=== PATIENT | female | born 1960 | race Caucasian/White ===

== ENCOUNTER 2016-05-18 15:21 | Outpatient (CLI) | payer OTHER | END 2016-05-18 15:22 | disposition home or self-care (01) | DX: Z12.31 Encounter for screening mammogram for malignant neoplasm of breast (principal) ==

== ENCOUNTER 2016-08-04 15:51 | Outpatient (CLI) | payer OTHER | END 2016-08-04 15:52 | disposition home or self-care (01) | DX: J47.9 Bronchiectasis, uncomplicated (principal); J43.9 Emphysema, unspecified; J84.10 Pulmonary fibrosis, unspecified; I77.6 Arteritis, unspecified; R06.02 Shortness of breath; R91.8 Other nonspecific abnormal finding of lung field ==

== ENCOUNTER 2017-02-13 16:27 | Outpatient (CLI) | payer OTHER ==
--- NOTE | 2017-02-14 09:18 | XRAY Report ---
TWO-VIEW CHEST: 02/13/2017 CLINICAL INDICATION: Upper respiratory infection, bronchiectasis. COMPARISON: CT 08/04/2016, plain film 02/25/2016. FINDINGS: Frontal and lateral views of the chest demonstrate a normal cardiac silhouette. The lungs now demonstrate patchy bilateral infiltrates, new from previous CT. No effusion or pneumothorax is present. IMPRESSION: PATCHY BILATERAL INFILTRATES. JOB #: [id number] EXT JOB #:[id number]
--- NOTE | 2017-02-14 09:19 | XRAY Report ---
THREE-VIEW PARANASAL SINUSES: 02/13/2017 CLINICAL INDICATION: Upper respiratory infection. FINDINGS: AP, Page, lateral views of the paranasal sinuses demonstrate no mucosal thickening or ai r-fluid level. Osseous structures appear unremarkable. IMPRESSION: NO EVIDENCE OF ACUTE SINUSITIS. JOB #: [id number] EXT JOB #:[id number]
== END 2017-02-13 16:28 | disposition home or self-care (01) ==
LOC: DI 16:27
PROVIDERS: ATTEND Physician Assistant Medical
DX: R91.8 Other nonspecific abnormal finding of lung field (principal); J06.9 Acute upper respiratory infection, unspecified; E03.9 Hypothyroidism, unspecified
CPT/HCPCS: 36415; 70220; 71020; 84439; 84443

== ENCOUNTER 2017-03-14 16:20 | Outpatient (CLI) | payer OTHER ==
--- NOTE | 2017-03-15 09:55 | XRAY Report ---
TWO VIEW CHEST: 03/14/2017 CLINICAL INDICATION: Followup pneumonia. COMPARISON: Plain film of 02/13/2017, chest CT of 08/04/2016, plain film of 02/25/2016. FINDINGS: Frontal and lateral views of the chest demonstrate a normal cardiac silhouette. Background bronchiectasis and emphysema are stable. The previously noted patchy infiltrates have resolved. No n ew consolidation, effusion, or pneumothorax. IMPRESSION: RESOLUTION OF PATCHY INFILTRATES. STABLE BACKGROUND BRONCHIECTASIS AND EMPHYSEMA. JOB #: [id number] EXT JOB #:[id number]
== END 2017-03-14 16:21 | disposition home or self-care (01) ==
LOC: DI 16:20
PROVIDERS: ATTEND Physician Assistant Medical
DX: J18.9 Pneumonia, unspecified organism (principal); J47.9 Bronchiectasis, uncomplicated; J43.9 Emphysema, unspecified
CPT/HCPCS: 71020

== ENCOUNTER 2017-06-22 07:55 | Outpatient (CLI) | payer BC ==
--- NOTE | 2017-06-23 15:56 | Mammography Report ---
DIGITAL SCREENING MAMMOGRAM: 06/22/2017 CLINICAL INDICATION: A 56-year-old nulliparous patient, for screening. COMPARISON: 05/2016, 04/2015, 03/2014, , 04/2011, 03/2010. TECHNIQUE: Routine CC and MLO projections were obtained of the breasts. Bilateral laterally exaggerated craniocaudal views. FINDINGS: The breasts again demonstrate heterogeneously dense fibroglandular parenchyma bilaterally. Punctate, typically benign calcifications are present. No suspicious masses, clustered microcalcifications, or regions of architectural distortion are identified. IMPRESSION: BENIGN FINDINGS. RECOMMENDATION: ROUTINE ANNUAL SCREENING UNLESS OTHERWISE CLINICALLY INDICATED. BIRADS CATEGORY 2-BENIGN FINDINGS. STANDARD QUALIFYING STATEMENTS: 1. This examination was reviewed with the aid of Computer-Aided Detection (CAD). 2. A negative or benign imaging report should not delay biopsy if clinically suspicious findings are present. Consider surgical consultation if warranted. More than 5% of cancers are not identified by imaging. 3. Dense breasts may obscure an underlying neoplasm. TD: 06/23/2017 15:54
== END 2017-06-22 07:56 | disposition home or self-care (01) ==
LOC: DI 07:55
PROVIDERS: ATTEND Physician Assistant Medical
DX: Z12.31 Encounter for screening mammogram for malignant neoplasm of breast (principal)
CPT/HCPCS: 77067

== ENCOUNTER 2017-06-22 07:56 | Outpatient (CLI) | payer BC ==
--- NOTE | 2017-06-22 14:29 | DEXA Report ---
DEXA SCAN: 06/22/2017 CLINICAL INDICATION: Postmenopausal. TECHNIQUE: Dual energy x-ray absorptiometry (DXA) was performed on a [email or web address] system. Regions measured are the AP spine, femoral neck, and, if needed, forearm. COMPARISON: None. In accordance with the International Society for Clinical Densitometry (ISCD) guidelines, data from previous exams may be reanalyzed using current recommendations and techniques. This is done to allow a more accurate basis for comparison with the current study. FINDINGS The data for the lumbar spine is as follows: REGION BMD (g/cm/cm) T-SCORE Z-SCORE L1 0.736 -3.3 -1.9 L2 0.809 -3.3 -1.8 L3 0.840 -3.0 -1.6 L4 0.824 -3.1 -1.7 TOTAL 0.807 -3.1 -1.7 NOTE: All evaluable vertebrae are used for classification. The data for the hip is as follows: REGION BMD (g/cm/cm) T-SCORE Z-SCORE Neck 0.754 -2.0 -0.6 TOTAL 0.705 -2.4 -1.3 NOTE: The femoral neck or total proximal femur, whichever is lowest, is used for classification. IMPRESSION THE WHO CLASSIFICATION BASED ON THE INTERNATIONAL REFERENCE STANDARD IS OSTEOPOROSIS. THE FRACTURE RISK IS HIGH. RECOMMENDATION: Patients with diagnosis of osteoporosis or osteopenia should have regular bone mineral density assessment. For those eligible for Medicare, routine testing is allowed once every 2 years. Testing frequency can be increased for patients who have rapidly progressing disease or for those who are receiving medical therapy to restore bone mass. COMMENT: World Health Organization (WHO) definitions for osteoporosis and osteopenia: NORMAL BMD: T-score at 1.0 or higher, fracture risk is low. OSTEOPENIA BMD: T-score between 1.0 and -2.5, fracture risk is increased. OSTEOPOROSIS BMD: T-score at 2.5 or lower, fracture risk high. National Osteoporosis Foundation recommends: 1. Obtain adequate dietary calcium (at least 1200 mg per day) and vitamin D (400 -800 international units per day). 2. Participate, as appropriate, in regular weightbearing and muscle- strengthening exercise. 3. Avoid tobacco use and reduce alcohol and caffeine intake. 4. For more detailed information see the website at www.NOF.org. TD: 06/22/2017 13:24 ADDISON
== END 2017-06-22 07:57 | disposition home or self-care (01) ==
LOC: DI 07:56
PROVIDERS: ATTEND Physician Assistant Medical
DX: M81.0 Age-related osteoporosis without current pathological fracture (principal)
CPT/HCPCS: 77080

== ENCOUNTER 2017-06-30 08:07 | Outpatient (CLI) | payer BC ==
[2017-06-30 08:39] LABS: BASOPHILS # (AUTO) 0.1 10^3/uL (0.0-0.1); BASOPHILS % (AUTO) 0.9 %; EOSINOPHILS # (AUTO) 0.4 10^3/uL (0.0-0.7); EOSINOPHILS % (AUTO) 3.5 %; HGB - HEMOGLOBIN 14.1 g/dL (12.0-16.0); LYMPHOCYTES # (AUTO) 1.5 10^3/uL (1.5-3.5); LYMPHOCYTES % (AUTO) 12.7 %; MEAN CORPUSCULAR HEMOGLOBIN 30.4 pg (27.0-31.0); MEAN CORPUSCULAR HGB CONC 33.6 g/dL (32.0-36.0); MEAN CORPUSCULAR VOLUME 90.5 fL (81.0-99.0); MEAN PLATELET VOLUME 7.2 fL (7.9-10.8); MONOCYTES # (AUTO) 0.9 10^3/uL (0.0-1.0); MONOCYTES % (AUTO) 7.6 %; NEUTROPHILS # (AUTO) 8.7 10^3/uL (1.5-6.6); NEUTROPHILS % (AUTO) 75.3 %; PLT - PLATELET COUNT 345 10^3/uL (130-450); RED BLOOD COUNT 4.64 10^6/uL (4.20-5.40); RED CELL DISTRIBUTION WIDTH 13.5 % (12.0-15.0); WHITE BLOOD COUNT 11.5 x10^3/uL (4.8-10.8)
[2017-06-30 08:49] LABS: ALBUMIN 4.4 g/dL (3.2-5.5); ALBUMIN/GLOBULIN RATIO 1.4 (1.0-2.2); ALKALINE PHOSPHATASE 69 IU/L (42-121); ALT ALANINE AMINOTRANSFERASE 16 IU/L (10-60); AST ASPARTATE AMINOTRANSFERASE 18 IU/L (10-42); BILIRUBIN,TOTAL 0.5 mg/dL (0.2-1.0); BUN - BLOOD UREA NITROGEN 15 mg/dL (6-20); CALCIUM 9.3 mg/dL (8.5-10.3); CARBON DIOXIDE - CO2 29 mmol/L (21-32); CHLORIDE 101 mmol/L (101-111); CHOL/HDL RATIO 2.8 (<4.4); CHOLESTEROL 187 mg/dL; CREATININE 0.7 mg/dL (0.4-1.0); GFR - MDRD 86 (>89); GLUCOSE 102 mg/dL (70-100); HDL CHOLESTEROL 67 mg/dL; LDL CHOLESTEROL,CALCULATED 109 mg/dL; LDL/HDL RATIO 1.6 (<4.4); SODIUM 139 mmol/L (135-145); TOTAL PROTEIN 7.6 g/dL (6.7-8.2); VLDL CHOLESTEROL 11 mg/dL
[2017-06-30 09:50] LABS: THYROID STIMULATING HORMONE 0.09 uIU/mL (0.34-5.60)
[2017-06-30 10:35] LABS: FREE T4 (FREE THYROXINE) 1.11 ng/dL (0.58-1.64)
== END 2017-06-30 08:08 | disposition home or self-care (01) ==
LOC: LAB 08:07
PROVIDERS: ATTEND Physician Assistant Medical
DX: Z00.00 Encounter for general adult medical examination without abnormal findings (principal)
CPT/HCPCS: 36415; 80053; 80061; 83721; 84439; 84443; 85025

== ENCOUNTER 2017-12-15 07:37 | Outpatient (CLI) | payer BC ==
[2017-12-15 08:39] LABS: THYROID STIMULATING HORMONE 15.62 uIU/mL (0.34-5.60)
[2017-12-15 08:41] LABS: FREE T4 (FREE THYROXINE) 0.49 ng/dL (0.58-1.64)
== END 2017-12-15 07:38 | disposition home or self-care (01) ==
LOC: LAB 07:37
PROVIDERS: ATTEND Internal Medicine Endocrinology, Diabetes & Metabolism
DX: M81.0 Age-related osteoporosis without current pathological fracture (principal); E03.9 Hypothyroidism, unspecified
CPT/HCPCS: 36415; 81599; 82306; 83970; 84075; 84439; 84443

== ENCOUNTER 2018-01-24 18:16 | Outpatient (CLI) | payer BC ==
--- NOTE | 2018-01-25 09:52 | Ultrasound Report ---
Reason: DYSPHAGIA Procedure Date: 01/24/2018 Accession Number: [id number] / [id number] Procedure: US - Head or Neck Soft Tissue CPT Code: FULL RESULT: EXAM: THYROID ULTRASOUND EXAM DATE: 01/24/2018 06:43 PM. CLINICAL HISTORY: DYSPHAGIA. COMPARISON: None. TECHNIQUE: Real time sonographic imaging of the thyroid was performed by the head of music. Multiple brand representative static images were saved for review. FINDINGS: THYROID GLAND: Right Lobe: 2.7 x 0.9 x 0.4 cm. Mild diffuse heterogenicity without definite discrete nodule. Right Lobe Nodules: None. Left Lobe: 2.4 x 0.8 x 0.7 cm. Mild diffuse heterogenicity without definite discrete nodule. Left Lobe Nodules: None. Isthmus: 0.2 cm AP. Isthmic Nodules: None. LYMPH NODES: No adenopathy demonstrated. OTHER: None. IMPRESSION: Small, heterogeneous thyroid without definite discrete nodule. RADIA
== END 2018-01-24 18:17 | disposition home or self-care (01) ==
LOC: DI 18:16
PROVIDERS: ATTEND Physician Assistant Medical
DX: R13.10 Dysphagia, unspecified (principal)
CPT/HCPCS: 76536

== ENCOUNTER 2018-05-14 17:59 | Inpatient (IN) | payer BC ==
[2018-05-14 18:39] LABS: BASOPHILS % (AUTO) 0.3 %; EOSINOPHILS # (AUTO) 0.1 10^3/uL (0.0-0.7); EOSINOPHILS % (AUTO) 0.6 %; HGB - HEMOGLOBIN 13.4 g/dL (12.0-16.0); LYMPHOCYTES % (AUTO) 7.1 %; MEAN CORPUSCULAR HEMOGLOBIN 30.4 pg (27.0-31.0); MEAN CORPUSCULAR HGB CONC 32.5 g/dL (32.0-36.0); MEAN CORPUSCULAR VOLUME 93.4 fL (81.0-99.0); MEAN PLATELET VOLUME 6.6 fL (7.9-10.8); MONOCYTES # (AUTO) 1.1 10^3/uL (0.0-1.0); NEUTROPHILS # (AUTO) 12.1 10^3/uL (1.5-6.6); PLT - PLATELET COUNT 301 10^3/uL (130-450); RED BLOOD COUNT 4.41 10^6/uL (4.20-5.40); RED CELL DISTRIBUTION WIDTH 14.7 % (12.0-15.0); WHITE BLOOD COUNT 14.3 x10^3/uL (4.8-10.8)
--- NOTE | 2018-05-14 18:43 | XRAY Report ---
Reason: cough, sob Procedure Date: 05/14/2018 Accession Number: [id number] / [id number] Procedure: XR - Chest 1 View X-Ray CPT Code: 47193 FULL RESULT: EXAM: CHEST RADIOGRAPHY EXAM DATE: 05/14/2018 06:29 PM. CLINICAL HISTORY: Cough, sob. COMPARISON: CHEST 2 VIEW PA/LAT 01/02/2018 2:27 PM. TECHNIQUE: 1 view. FINDINGS: Lungs/Pleura: There are no patchy and nodular airspace densities in the right mid and lower lung. Left lung appears unchanged. There is no pneumothorax. Mediastinum: Heart size is normal. Trachea is midline. Other: None. IMPRESSION: Suspicious for a patchy right mid and lower lung zone bronchopneumonia RADIA
[2018-05-14 18:53] LABS: ALBUMIN 4.3 g/dL (3.2-5.5); ALBUMIN/GLOBULIN RATIO 1.4 (1.0-2.2); BILIRUBIN,TOTAL 0.5 mg/dL (0.2-1.0); CALCIUM 9.1 mg/dL (8.5-10.3); CREATININE 0.7 mg/dL (0.4-1.0); TOTAL PROTEIN 7.4 g/dL (6.7-8.2)
[2018-05-14] MEDS ORDERED: AZITHROMYCIN INJ 500 MG in SODIUM CHLORIDE 0.9% 250 ML IV STA (18:54)
[2018-05-14] MEDS ORDERED: MORPHINE 2 MG/ML CARPUJECT IVP STA ×2 (18:54→20:08)
[2018-05-14] MEDS ORDERED: cefTRIAXone 2 GM in SODIUM CHLORIDE 0.9% MINIBAG 100 ML IV STA (18:54)
--- NOTE | 2018-05-14 18:56 | ED Physician Documentation ---
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 No fevers but she has been cold and sweaty. She feels terrible.) Review of Systems Ten Systems: 10 systems reviewed and negative Constitutional: reports: Chills. 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 - Present Medications Home Medications: Ambulatory Orders Medication Instructions Recorded Confirmed Calcium Carbonate/Vitamin D3 1 each PO DAILY 03/25/14 01/26/16 [Calcium + Vitamin D Tablet] Albuterol [Ventolin Hfa] 2 puffs INH Q4H PRN 10/14/14 01/26/16 Levothyroxine [Synthroid] 137 mcg PO QDAC 04/07/15 01/26/16 [place]-3 Fatty Acids [Fish Oil] 1 cap PO DAILY 05/19/15 01/26/16 Ibuprofen 05/14/18 Methotrexate 05/14/18 Montelukast Sodium [Singulair] 05/14/18 Turmeric Root Extract [Turmeric 05/14/18 Curcumin] - Allergies Allergies/Adverse Reactions: Allergies Allergy/AdvReac Type Severity Reaction Status Date / Time Penicillins Allergy Hives Verified 05/14/18 18:09 - Social History Does the pt smoke?: No Smoking Status: Never smoker Does the pt drink ETOH?: Yes Does the pt have substance abuse?: No - Family History Family history: reports: Non contributory - Immunizations Immunizations are current?: Yes PD ED PE NORMAL - Vitals Vital signs reviewed: Yes - General General: Alert and oriented X 3, Other (She appears to be in distress due to pain) - HEENT HEENT: PERRL, EOMI - Neck Neck: Supple, no meningeal sign, No bony TTP - Cardiac Cardiac: RRR, No murmur - Respiratory Respiratory: Other (Diminished on the right and wheezy on the left) - Abdomen Abdomen: Soft, Non tender - Back Back: No CVA TTP, No spinal TTP - Derm Derm: Normal color, Warm and dry - Extremities Extremities: No edema, No calf tenderness / cord - Neuro Neuro: Alert and oriented X 3, Normal speech Results - Vitals Vitals: Vital Signs - 24 hr 05/14/18 05/14/18 18:03 20:15 Temperature 37.1 C Heart Rate 115 H 110 H Respiratory 18 22 Rate Blood Pressure 129/75 123/73 O2 Saturation 91 L 97 Oxygen O2 Source Room air - EKG (time done) 1805 Rate: Rate (enter#) (104) Rhythm: Sinus tachycardia [place]: Normal Intervals: Normal MO, Prolonged QT QRS: Normal Ischemia: Non specific changes Computer interpretation: Agree with computer - Labs Labs: Laboratory Tests 05/14/18 05/14/18 05/14/18 18:33 18:33 18:33 WBC 14.3 H RBC 4.41 Hgb 13.4 Hct 41.2 MCV 93.4 MCH 30.4 MCHC 32.5 RDW 14.7 Plt Count 301 MPV 6.6 L Neut # (Auto) 12.1 H Lymph # (Auto) 1.0 L Rabun # (Auto) 1.1 H Eos # (Auto) 0.1 Baso # (Auto) 0.0 Absolute Nucleated RBC 0.00 Nucleated RBC % 0.0 Sodium 136 Potassium 3.4 L Chloride 96 L Carbon Dioxide 30 Anion Gap 10.0 BUN 12 Creatinine 0.7 Estimated GFR (MDRD) 86 L Glucose 122 H Lactic Acid Calcium 9.1 Total Bilirubin 0.5 AST 20 ALT 17 Alkaline Phosphatase 73 Troponin I < 0.04 Total Protein 7.4 Albumin 4.3 Globulin 3.1 Albumin/Globulin Ratio 1.4 Lipase 26 Influenza A (Rapid) Influenza B (Rapid) 05/14/18 05/14/18 19:27 20:18 WBC RBC Hgb Hct MCV MCH MCHC RDW Plt Count MPV Neut # (Auto) Lymph # (Auto) Rabun # (Auto) Eos # (Auto) Baso # (Auto) Absolute Nucleated RBC Nucleated RBC % Sodium Potassium Chloride Carbon Dioxide Anion Gap BUN Creatinine Estimated GFR (MDRD) Glucose Lactic Acid 0.9 Calcium Total Bilirubin AST ALT Alkaline Phosphatase Troponin I Total Protein Albumin Globulin Albumin/Globulin Ratio Lipase Influenza A (Rapid) Negative Influenza B (Rapid) Negative - Rads (name of study) 1v Chest Radiology: EMP read contemporaneously (RML/RLL small PNA) CTA Chest Radiology: EMP read contemporaneously (no PE< Acute on chronic lung dz, with PNA and adenopathy.) PD MEDICAL DECISION MAKING - ED course ED course: 57yo woman with URI and now severe CP and productive cough, tight lungs. CXR with PNA and given severity of sx also CT which was neg except for infection. BCX x 2 obtained, and given rocephin/zithromax. Given the underlying pulmonary vasculitis I spoke with Dr. Vigil on-call for [facility] pulmonology who reviewed her chart and does not feel like steroids need to be bolused and it can be treated sort of like cfi-oh-ovf-mill pneumonia. She was hypoxic in the department down to 85% on room air and I spoke with the hospitalist, Dr. Whiteside for admission at 9 PM. Departure - Departure Disposition: 66 [facility] DC/Xfer Clinical Impression: Hypoxemia Pneumonia Qualifiers: Pneumonia type: due to unspecified organism Laterality: right Lung location: unspecified part of lung Qualified Code(s): J18.9 - Pneumonia, unspecified organism Condition: Stable
[2018-05-14] MEDS ORDERED: IOVERSOL 320 100 ML VIAL IVP ONE (19:46)
--- NOTE | 2018-05-14 20:31 | CT Report ---
Reason: chest pain Procedure Date: 05/14/2018 Accession Number: [id number] / [id number] Procedure: CT - Chest Angio (PE) CPT Code: FULL RESULT: EXAM: CT ANGIOGRAM CHEST EXAM DATE: 05/14/2018 07:58 PM. CLINICAL HISTORY: Chest pain. COMPARISON: CHEST W/O 08/04/2016 4:26 PM CHEST ANGIO 03/26/2015 12:15 PM. TECHNIQUE: Routine helical imaging was performed through the chest in the pulmonary arterial phase. IV Contrast: OPTI 320 80mL. Reconstructions: Coronal 3-D MIP reconstructions.Sagittal and coronal. In accordance with CT protocol optimization, one or more of the following dose reduction techniques were utilized for this exam: automated exposure control, adjustment of mA and/or KV based on patient size, or use of iterative reconstructive technique. FINDINGS: Pulmonary Arteries: Diagnostic quality: Adequate through the segmental arteries. No evidence for acute or chronic pulmonary emboli. RV/LV is within normal limits. There is no interventricular septal bowing. There is no reflux of contrast material in the IVC. Lungs/Pleura: Overexpanded, emphysematous changes. Interval development of diffuse peripheral interstitial infiltrates, tree-in-bud appearance, mild bronchial wall thickening, and several subsegmental areas of focal consolidation. Dominant focal areas of consolidation: posterior segment right upper lobe axial image 57 series 5 measuring 3.5 x 2.0 cm, 3.8 x 2.5 cm lateral segment right middle lobe axial image 86 series 5. Several 1.5 cm and smaller more focal opacities basilar segments right lower lobe. Calcified granulomata right lower lobe. No discrete noncalcified mass, effusion or pneumothorax. Mediastinum: Heart is of normal caliber without significant pericardial fluid. Interval increase in extensive confluent adenopathy right hilum, subcarinal region, pretracheal region and to a much lesser extent involving the aortopulmonary window and left hilum. No endobronchial lesions. Thoracic Aorta: Unremarkable. Upper Abdomen: Unremarkable. Other: None. IMPRESSION: 1. No evidence of pulmonary emboli. 2. Acute on chronic lung disease consisting of airway disease and extensive small peripheral lung infiltrates, several dominant areas in the right lung. Follow-up chest CT in 3 months recommended to confirm resolution following treatment. 3. Increasing mediastinal and hilar adenopathy. RADIA
[2018-05-14] MEDS ORDERED: IPRATROPIUM/ALBUTEROL 3 ML NEB INH STA (21:05)
[2018-05-14] MEDS ORDERED: PROCHLORPERAZINE 10 MG/2 ML VIAL IVP PRN (21:24)
[2018-05-14] MEDS ORDERED: ZOLPIDEM 5 MG TABLET PO PRN (21:24)
[2018-05-14] MEDS ORDERED: ONDANSETRON 4 MG/2 ML VIAL IVP PRN (21:24)
[2018-05-14] MEDS ORDERED: KETOROLAC 30 MG/ML VIAL IVP STA (21:34)
[2018-05-14] MEDS ORDERED: LIDOCAINE PATCH 5% TOP STA (21:35)
[2018-05-14] MEDS ORDERED: LORazepam 2 MG/ML VIAL IVP PRN (21:40)
[2018-05-14 21:56] LABS: CALCIUM 8.3 mg/dL (8.5-10.3); CREATININE 0.7 mg/dL (0.4-1.0)
--- NOTE | 2018-05-14 22:04 | HISTORY & PHYSICAL EXAMINATION ---
Chief Complaint - Chief Complaint Chief Complaint: Chest pain History of Present Illness - Admitted From Admitted From:: Emergency Department - History Obtained From Records Reviewed: ED History obtained from: Patient, and ED Physician Exam Limitations: None - History of Present Illness HPI Comment/Other: Patient is a 57-year-old female with a history of pulmonary vasculitis on methotrexate as well as hypothyroidism who presents today with a relatively sudden onset of chest pain at rest at approximately 4 PM this afternoon. Patient states she was riding in her car doing nothing unusual or exertional when she started to have pain in a fairly localized area to the right inferior aspect of the chest wall. She states it does not radiate nor does it seem to change with position or exacerbation or rest. She describes it as sharp and like a knife stabbing her in the to the chest. She went to the emergency room for evaluation where the initial acute coronary syndrome workup was initiated showing no acute findings on the EKG and a normal troponin initially. She also has an exacerbation of her chronic shortness of breath which has been present since her diagnosis of pulmonary vasculitis several years ago. She states that she did take a DuoNeb breathing treatment at home prior to going to the emergency room that was not helpful however she admits that she was quite panicky and is not sure if it was quite administered properly. In the emergency room she has not had a very high oxygen requirement waxing and waning between room air and 2-3 L of nasal cannula. Chest x-ray showed a possible consolidation, CT angiogram was also done that was only remarkable for possible consolidation. There is no pulmonary embolus, dissecting abdominal aneurysm or other acute findings. Dr. Bailon, the emergency physician who saw her in the ED did contact pulmonology at [facility] where she is receiving her care in the recommendation by them was to treat this as a typical community-acquired pneumonia without the need for steroids or other specialized treatment given the vasculitis diagnosis. Patient had a blood culture x2, followed by azithromycin and Rocephin and IV morphine for pain. Despite 2 doses of 4 mg of IV morphine however, the patient states that it only took the pain from a 10 to an 8 and she is still quite uncomfortable at the time of exam. She states that Dilaudid is not really an option for her because she has significant side effects. I was asked to admit the patient under observation for pain control of the chest pain and for the community-acquired pneumonia. History - Past Medical History Cardiovascular: reports: None Respiratory: reports: Shortness of breath, Other (Pulmonary vasculitis) Neuro: reports: None Endocrine/Autoimmune: reports: HyPOthyroidism GI: reports: None INTENSIVE CARE UNIT NURSE: reports: Other (Cervical cancer status post total hysterectomy and chemotherapy) : reports: None HEENT: reports: None Psych: reports: None Musculoskeletal: reports: Osteoporosis Derm: reports: None MRSA Hx?: No - Past Surgical History /INTENSIVE CARE UNIT NURSE: reports: Hysterectomy - Family & Social History Family History Comment/Other: Patient denies any family history Living arrangement: At home Living Situation: With spouse/s.o. Social History Notes: Patient works as an elementary school counselor - Substance History Use: Uses substance without health or social issues: NONE Abuse: Recurrent use of substance despite neg consequences: NONE Dependence: Experiences withdrawal or developed tolerances: NONE - POLST Patient has POLST: No POLST Status: Full Code Meds/Allgy - Home Medications Home Medications: Ambulatory Orders Medication Instructions Recorded Confirmed Calcium Carbonate/Vitamin D3 1 each PO DAILY 03/25/14 01/26/16 [Calcium + Vitamin D Tablet] Albuterol [Ventolin Hfa] 2 puffs INH Q4H PRN 10/14/14 01/26/16 Levothyroxine [Synthroid] 137 mcg PO QDAC 04/07/15 01/26/16 [place]-3 Fatty Acids [Fish Oil] 1 cap PO DAILY 05/19/15 01/26/16 Montelukast Sodium [Singulair] 05/14/18 RX: Ibuprofen 05/14/18 RX: Methotrexate 05/14/18 Turmeric Root Extract [Turmeric 05/14/18 Curcumin] - Allergies Allergies/Adverse Reactions: Allergies Allergy/AdvReac Type Severity Reaction Status Date / Time Penicillins Allergy Hives Verified 05/14/18 18:09 Review of Systems - Cardiovascular Cariovascular: reports: Chest pain. denies: Lightheadedness, Syncope, Exertional dyspnea - Respiratory Respiratory: reports: Wheezing, SOB at rest, SOB with exertion. denies: Cough - Gastrointestinal Gastrointestinal: denies: Abdominal pain - Genitourinary Genitourinary: denies: Dysuria - All Other Systems All Other Systems: reports: Reviewed and negative Prior Level of Functionality: Independent Exam - Vital Signs Reviewed Vital Signs: Yes Vital Signs: Vital Signs x48h Temp Pulse Resp BP Pulse Ox 05/14/18 21:58 107 H 24 121/83 H 98 05/14/18 21:35 105 H 31 H 05/14/18 20:15 110 H 22 123/73 97 05/14/18 18:03 37.1 C 115 H 18 129/75 91 L Vital Signs - 24 hr 05/14/18 05/14/18 05/14/18 18:03 20:15 21:35 Temperature 37.1 C Heart Rate 115 H 110 H 105 H Respiratory 18 22 31 H Rate Blood Pressure 129/75 123/73 O2 Saturation 91 L 97 05/14/18 05/14/18 21:52 21:58 Temperature Heart Rate 104 H 107 H Respiratory 27 H 24 Rate Blood Pressure 121/83 H O2 Saturation 98 98 Oxygen O2 Source Nasal cannula - Physical Exam General Appearance: positive: Mild distress (Mild distress due to pain) Eyes Bilateral: positive: Normal inspection ENT: positive: ENT inspection nml Neck: positive: Nml inspection Respiratory: positive: Chest non-tender, Wheezes (Bilateral basilar wheezes) Cardiovascular: positive: Regular rate & rhythm, No murmur, No gallop Abdomen: positive: Non-tender, No organomegaly, Nml bowel sounds Skin: positive: Color nml Extremities: positive: Non-tender, Full ROM, No pedal edema Neurologic/Psychiatric: positive: Oriented x3, CN's nml (2-12), Motor nml, Sensation nml, Mood/affect nml Sepsis Event Note (H) - Evaluation Current Stage of Sepsis: Ruled out Conclusion/Plan - Problem List (1) Chest pain Conclusion/Plan: Chest pain does not appear to be cardiac in nature. This is for several r easons, first because the location of the pain and its very focalized area, as well as the constant description of pain that does not change with exertion, as well as negative troponins and an unremarkable EKG. This is consistent with a pleurisy, possibly secondary to a pneumonitis given her history of a inflammatory vasculitis of the lungs previously diagnosed. Certainly an acute infection such as community-acquired pneumonia would exacerbate this leading to a focal pleurisy pain. Unfortunately she has not responded to significant doses of morphine so I will try her on Toradol and a lidocaine patch. Given the persistence of the chest pain and only one troponin having been drawn I will go ahead and rule out acute coronary syndrome with to further serial troponin draws but I anticipate them to also be negative. Qualifiers: Chest pain type: pleurodynia Qualified Code(s): R07.81 - Pleurodynia (2) Community acquired pneumonia Conclusion/Plan: Community-acquired pneumonia with a minimal oxygen requirement which is probably more of a function of her pain than the actual infection. I would surmise that once we get her pain under control her breathing will improve and she will likely not require oxygen and can probably be discharged on oral antibiotics within 1-2 days. However I would still like to rule out acute coronary syndrome, and I agree with admission given her risk factors with pulmonary vasculitis. We will continue the IV antibiotics and follow-up in the morning possible transition to orals within 1-2 days. (3) Pulmonary vasculitis Conclusion/Plan: Nothing acute related to this diagnosis with the exception of possible pain b eing more exacerbated secondary to the inflammatory vasculitis. Per [facility], recommendation is to treat this as a typical community-acquired pneumonia as if she does not have this diagnosis. We will resume her home methotrexate. - Lab Results Lab results reviewed: Yes Dustin Bones: 05/14/18 18:33 05/14/18 21:42 - Diagnostic Imaging Results Diagnostic Imaging Results: positive: Final report reviewed, Read independently - EKG Results EKG Interpreted Independently: Yes EKG Comparison: Old EKG unavailable Core Measures - Anticipated LOS I expect patient to be DC'd or transferred within 96 hours.: Yes - DVT/VTE - Prophylaxis VTE/DVT Device ordered at admit?: Yes
[2018-05-15] MEDS: SODIUM CHLORIDE FLUSH 0.9% 10 ML SYRINGE IVP SCH ×5 (00:28→23:46)
[2018-05-15] MEDS ORDERED: IOVERSOL 320 100 ML VIAL IVP ONE ×2 (01:22)
[2018-05-15 03:47] LABS: BASOPHILS % (AUTO) 0.3 %; EOSINOPHILS % (AUTO) 0.4 %; HGB - HEMOGLOBIN 12.4 g/dL (12.0-16.0); LYMPHOCYTES # (AUTO) 1.1 10^3/uL (1.5-3.5); LYMPHOCYTES % (AUTO) 9.5 %; MEAN CORPUSCULAR HEMOGLOBIN 30.5 pg (27.0-31.0); MEAN CORPUSCULAR HGB CONC 33.1 g/dL (32.0-36.0); MEAN CORPUSCULAR VOLUME 92.2 fL (81.0-99.0); MEAN PLATELET VOLUME 6.9 fL (7.9-10.8); MONOCYTES % (AUTO) 8.5 %; NEUTROPHILS # (AUTO) 9.2 10^3/uL (1.5-6.6); NEUTROPHILS % (AUTO) 81.3 %; PLT - PLATELET COUNT 238 10^3/uL (130-450); RED BLOOD COUNT 4.06 10^6/uL (4.20-5.40); RED CELL DISTRIBUTION WIDTH 14.9 % (12.0-15.0); WHITE BLOOD COUNT 11.4 x10^3/uL (4.8-10.8)
[2018-05-15 03:53] LABS: CALCIUM 8.4 mg/dL (8.5-10.3); CREATININE 0.6 mg/dL (0.4-1.0)
[2018-05-15] MEDS ORDERED: LEVOTHYROXINE 112 MCG TABLET PO SCH (07:00)
[2018-05-15] MEDS ORDERED: LEVOTHYROXINE 25 MCG TABLET PO SCH (07:00)
[2018-05-15] MEDS: oxyCODONE 5 MG TABLET PO PRN ×2 (07:34→22:16)
[2018-05-15] MEDS: LEVOTHYROXINE 112 MCG TABLET PO SCH (07:35)
[2018-05-15] MEDS: PANTOPRAZOLE 40 MG TABLET PO SCH (07:35)
[2018-05-15] MEDS: IPRATROPIUM/ALBUTEROL 3 ML NEB INH PRN ×4 (07:36→19:50)
[2018-05-15] MEDS: DOXYCYCLINE INJ 100 MG in SODIUM CHLORIDE 0.9% MINIBAG 100 ML IV SCH ×2 (08:44→20:42)
[2018-05-15] MEDS: SODIUM CHLORIDE FLUSH 0.9% 10 ML SYRINGE IVP PRN ×3 (08:50→11:11)
[2018-05-15] MEDS: CALCIUM CARB (OYSTER SHELL) 500 MG TABLET PO SCH (08:54)
[2018-05-15] MEDS: POLYETHYLENE GLYCOL 3350 17 GM PACKET PO SCH (08:54)
[2018-05-15] MEDS: CHOLECALCIFEROL 400 UNIT TABLET PO SCH (08:54)
[2018-05-15] MEDS: LACTOB/S.THERMOPHL/BIFIDO CAPSULE PO SCH ×2 (08:55→16:25)
[2018-05-15] MEDS: AZITHROMYCIN INJ 500 MG in SODIUM CHLORIDE 0.9% 250 ML IV SCH (10:02)
[2018-05-15] MEDS: ACETAMINOPHEN 325 MG TABLET PO PRN ×2 (11:21→19:17)
[2018-05-15] MEDS ORDERED: LIDOCAINE PATCH 5% TOP PRN (12:20)
[2018-05-15] MEDS ORDERED: KETOROLAC 30 MG/ML VIAL IVP PRN (12:20)
--- NOTE | 2018-05-15 12:21 | PROVIDER PROGRESS NOTE ---
Subjective - Prog Note Date Prog Note Date: 05/15/18 Prog Note Time: 12:21 - Subjective Pt reports feeling: Improved Subjective: Miesha complains of not being able to sleep on her first night of stay due to "loud banging in the hallways". She denies any new symptoms including chest pain, nausea, vomiting, rashes, headaches, blurred vision, headaches, or an increased cough. She states that she can probably get up a sputum sample today. Current Medications - Current Medications Current Medications: Active Medications: Acetaminophen (Tylenol) 650 mg PO Q4HR PRN Albuterol/Ipratropium (Duoneb) 3 ml INH RTQ4H PRN Calcium Carbonate/Glycine ([place]-500) 500 mg PO DAILY ROMY Cholecalciferol (Vitamin D3) 400 unit PO DAILY ROMY Azithromycin 500 mg/ Sodium (Chloride) 250 mls @ 250 mls/hr IV DAILY ROMY Doxycycline Hyclate 100 mg/ (Sodium Chloride) 100 mls @ 100 mls/hr IV BID ROMY Ketorolac Tromethamine (Toradol Inj (30mg)) 30 mg IVP Q6HR PRN Lactobacil/Bifidobact/Streptococcus (Vsl#3) 1 cap PO BIDWM ROMY Levothyroxine Sodium (Synthroid) 112 mcg PO QDAC ROMY Lidocaine (Lidoderm Patch) 1 patch TOP DAILY PRN Lorazepam (Ativan Inj (Vial)) 1 mg IVP Q2HR PRN Ondansetron HCl (Zofran Inj) 4 mg IVP Q6HR PRN Oxycodone HCl (Roxicodone) 5 mg PO Q4HR PRN Pantoprazole Sodium (Protonix) 40 mg PO QDAC ROMY Polyethylene Glycol (Miralax) 17 gm PO DAILY [facility] Prochlorperazine Edisylate (Compazine Inj) 10 mg IVP Q6HR PRN Zolpidem Tartrate (Ambien) 5 mg PO QPM PRN HOME meds: Calcium Carbonate/Vitamin D3 [Calcium + Vitamin D Tablet] 1 each PO DAILY 03/25/14 Albuterol [Ventolin Hfa] 2 puffs INH Q4H PRN 10/14/14 Levothyroxine [Synthroid] 112 mcg PO QDAC 04/07/15 [place]-3 Fatty Acids [Fish Oil] 1 cap PO DAILY 05/19/15 Ibuprofen 400 mg PO Q6H PRN 05/14/18 Methotrexate 15 mg PO MO 05/14/18 Turmeric Root Extract [Turmeric Curcumin] 500 mg PO DAILY 05/14/18 Ipratropium/Albuterol [Duoneb] 3 ml INH BID 05/15/18 Montelukast [Singulair] 10 mg PO QPM 05/15/18 Objective - Vital Signs/Intake & Output Reviewed Vital Signs: Yes Vital Signs: Vital Signs x48h Temp Pulse Pulse Resp BP Pulse Ox 05/15/18 11:35 78 16 05/15/18 08:25 37.3 C 83 18 123/66 96 05/15/18 07:37 85 18 05/15/18 04:29 36.4 C L 90 20 111/57 L 99 Intake & Output: Intake & Output 05/12/18 05/13/18 05/14/18 05/15/18 23:59 23:59 23:59 23:59 Intake Total 350 1330 Balance 350 1330 - Objective General Appearance: positive: Alert, Mild distress, Moderate distress, Anxious Eyes Bilateral: positive: PERRL ENT: positive: Pharynx nml, Dry mucous membranes Neck: positive: Thyroid nml, No JVD, Trachea midline Respiratory: positive: Chest non-tender, No respiratory distress, Rhonchi Cardiovascular: positive: Regular rate & rhythm, No murmur, No gallop Peripheral Pulses: 1+ Radial (R), 1+ Radial (L) Abdomen: positive: Non-tender, Nml bowel sounds Back: positive: Nml inspection Skin: positive: Color nml, No rash, Warm, Dry Extremities: positive: Non-tender, Full ROM, Nml appearance, No pedal edema Neurologic/Psychiatric: positive: Oriented x3, CN's nml (2-12), Motor nml, S ensation nml, Mood/affect nml, Weakness, Depressed mood/affect Reflexes: Bicep (R): 3+, Bicep (L): 3+ - Lab Results Fish Bones: 05/15/18 03:40 05/15/18 03:40 Other Labs: Lab Results x24hrs 05/15/18 05/15/18 05/15/18 Range/Units 09:50 03:40 03:40 WBC 11.4 H (4.8-10.8) x10^3/uL RBC 4.06 L (4.20-5.40) 10^6/uL Hgb 12.4 (12.0-16.0) g/dL Hct 37.5 (37.0-47.0) % MCV 92.2 (81.0-99.0) fL MCH 30.5 (27.0-31.0) pg MCHC 33.1 (32.0-36.0) g/dL RDW 14.9 (12.0-15.0) % Plt Count 238 (130-450) 10^3/uL MPV 6.9 L (7.9-10.8) fL Neut # (Auto) 9.2 H (1.5-6.6) 10^3/uL Lymph # (Auto) 1.1 L (1.5-3.5) 10^3/uL [place] # (Auto) 1.0 (0.0-1.0) 10^3/uL Eos # (Auto) 0.0 (0.0-0.7) 10^3/uL Baso # (Auto) 0.0 (0.0-0.1) 10^3/uL Absolute Nucleated RBC 0.01 x10^3/uL Nucleated RBC % 0.1 /100WBC Sodium 139 (135-145) mmol/L Potassium 3.9 (3.5-5.0) mmol/L Chloride 100 L (101-111) mmol/L Carbon Dioxide 31 (21-32) mmol/L Anion Gap 8.0 (6-13) BUN 13 (6-20) mg/dL Creatinine 0.6 (0.4-1.0) mg/dL Estimated GFR (MDRD) 103 (>89) Glucose 108 H (70-100) mg/dL Lactic Acid (0.5-2.2) mmol/L Calcium 8.4 L (8.5-10.3) mg/dL Total Bilirubin (0.2-1.0) mg/dL AST (10-42) IU/L ALT (10-60) IU/L Alkaline Phosphatase (42-121) IU/L Troponin I < 0.04 (<0.49) ng/mL Total Protein (6.7-8.2) g/dL Albumin (3.2-5.5) g/dL Globulin (2.1-4.2) g/dL Albumin/Globulin Ratio (1.0-2.2) Lipase (22-51) U/L Influenza A (Rapid) (Negative) Influenza B (Rapid) (Negative) 05/15/18 05/14/18 05/14/18 Range/Units 03:40 21:42 21:42 WBC (4.8-10.8) x10^3/uL RBC (4.20-5.40) 10^6/uL Hgb (12.0-16.0) g/dL Hct (37.0-47.0) % MCV (81.0-99.0) fL MCH (27.0-31.0) pg MCHC (32.0-36.0) g/dL RDW (12.0-15.0) % Plt Count (130-450) 10^3/uL MPV (7.9-10.8) fL Neut # (Auto) (1.5-6.6) 10^3/uL Lymph # (Auto) (1.5-3.5) 10^3/uL [place] # (Auto) (0.0-1.0) 10^3/uL Eos # (Auto) (0.0-0.7) 10^3/uL Baso # (Auto) (0.0-0.1) 10^3/uL Absolute Nucleated RBC x10^3/uL Nucleated RBC % /100WBC Sodium 132 L (135-145) mmol/L Potassium 3.9 (3.5-5.0) mmol/L Chloride 97 L (101-111) mmol/L Carbon Dioxide 28 (21-32) mmol/L Anion Gap 7.0 (6-13) BUN 12 (6-20) mg/dL Creatinine 0.7 (0.4-1.0) mg/dL Estimated GFR (MDRD) 86 L (>89) Glucose 118 H (70-100) mg/dL Lactic Acid (0.5-2.2) mmol/L Calcium 8.3 L (8.5-10.3) mg/dL Total Bilirubin (0.2-1.0) mg/dL AST (10-42) IU/L ALT (10-60) IU/L Alkaline Phosphatase (42-121) IU/L Troponin I < 0.04 < 0.04 (<0.49) ng/mL Total Protein (6.7-8.2) g/dL Albumin (3.2-5.5) g/dL Globulin (2.1-4.2) g/dL Albumin/Globulin Ratio (1.0-2.2) Lipase (22-51) U/L Influenza A (Rapid) (Negative) Influenza B (Rapid) (Negative) 05/14/18 05/14/18 05/14/18 Range/Units 20:18 19:27 18:33 WBC (4.8-10.8) x10^3/uL RBC (4.20-5.40) 10^6/uL Hgb (12.0-16.0) g/dL Hct (37.0-47.0) % MCV (81.0-99.0) fL MCH (27.0-31.0) pg MCHC (32.0-36.0) g/dL RDW (12.0-15.0) % Plt Count (130-450) 10^3/uL MPV (7.9-10.8) fL Neut # (Auto) (1.5-6.6) 10^3/uL Lymph # (Auto) (1.5-3.5) 10^3/uL [place] # (Auto) (0.0-1.0) 10^3/uL Eos # (Auto) (0.0-0.7) 10^3/uL Baso # (Auto) (0.0-0.1) 10^3/uL Absolute Nucleated RBC x10^3/uL Nucleated RBC % /100WBC Sodium (135-145) mmol/L Potassium (3.5-5.0) mmol/L Chloride (101-111) mmol/L Carbon Dioxide (21-32) mmol/L Anion Gap (6-13) BUN (6-20) mg/dL Creatinine (0.4-1.0) mg/dL Estimated GFR (MDRD) (>89) Glucose (70-100) mg/dL Lactic Acid 0.9 (0.5-2.2) mmol/L Calcium (8.5-10.3) mg/dL Total Bilirubin (0.2-1.0) mg/dL AST (10-42) IU/L ALT (10-60) IU/L Alkaline Phosphatase (42-121) IU/L Troponin I < 0.04 (<0.49) ng/mL Total Protein (6.7-8.2) g/dL Albumin (3.2-5.5) g/dL Globulin (2.1-4.2) g/dL Albumin/Globulin Ratio (1.0-2.2) Lipase (22-51) U/L Influenza A (Rapid) Negative (Negative) Influenza B (Rapid) Negative (Negative) 05/14/18 05/14/18 Range/Units 18:33 18:33 WBC 14.3 H (4.8-10.8) x10^3/uL RBC 4.41 (4.20-5.40) 10^6/uL Hgb 13.4 (12.0-16.0) g/dL Hct 41.2 (37.0-47.0) % MCV 93.4 (81.0-99.0) fL MCH 30.4 (27.0-31.0) pg MCHC 32.5 (32.0-36.0) g/dL RDW 14.7 (12.0-15.0) % Plt Count 301 (130-450) 10^3/uL MPV 6.6 L (7.9-10.8) fL Neut # (Auto) 12.1 H (1.5-6.6) 10^3/uL Lymph # (Auto) 1.0 L (1.5-3.5) 10^3/uL [place] # (Auto) 1.1 H (0.0-1.0) 10^3/uL Eos # (Auto) 0.1 (0.0-0.7) 10^3/uL Baso # (Auto) 0.0 (0.0-0.1) 10^3/uL Absolute Nucleated RBC 0.00 x10^3/uL Nucleated RBC % 0.0 /100WBC Sodium 136 (135-145) mmol/L Potassium 3.4 L (3.5-5.0) mmol/L Chloride 96 L (101-111) mmol/L Carbon Dioxide 30 (21-32) mmol/L Anion Gap 10.0 (6-13) BUN 12 (6-20) mg/dL Creatinine 0.7 (0.4-1.0) mg/dL Estimated GFR (MDRD) 86 L (>89) Glucose 122 H (70-100) mg/dL Lactic Acid (0.5-2.2) mmol/L Calcium 9.1 (8.5-10.3) mg/dL Total Bilirubin 0.5 (0.2-1.0) mg/dL AST 20 (10-42) IU/L ALT 17 (10-60) IU/L Alkaline Phosphatase 73 (42-121) IU/L Troponin I (<0.49) ng/mL Total Protein 7.4 (6.7-8.2) g/dL Albumin 4.3 (3.2-5.5) g/dL Globulin 3.1 (2.1-4.2) g/dL Albumin/Globulin Ratio 1.4 (1.0-2.2) Lipase 26 (22-51) U/L Influenza A (Rapid) (Negative) Influenza B (Rapid) (Negative) ABX Reporting Has patient been on IV antibiotics over the past 48 hours?: Yes Sepsis Event Note (H) - Evaluation Current Stage of Sepsis: Ruled out Assessment/Plan - Problem List (1) Community acquired pneumonia Impression: Imaging on admission showed lower lobe pneumonia and the patient continues on IV treatment using Azithromax and Doxycycline. She has given a sputum sample that is now pending. She continues on oxygen for now, and has scattered crackles bilaterally. Plan: Await respiratory culture results, continue to treat PNA. 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 She states that usually every fall she winds up getting pneumonia, similar to now. Plan: Obtain records if no improvement. Consider a walking oxygen test upon discharge if indicated. Continue treatment pneumonia, supplemental oxygen. (3) Chest pain Impression: The patient had right sided chest, flank pain that has been much improved since adding the Torodol and lidocaine patch. All serial troponins were negative at 0.04, and nothing on telemetry indicated heart damage. On exam, she no longer has this symptom. Plan: Treat pneumonia, d/c tele. 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 She has since required supplemental oxygen since admission for this acute pneumonia. Plan: Continue supplemental oxygen, treat pneumonia.
[2018-05-16] MEDS: IPRATROPIUM/ALBUTEROL 3 ML NEB INH PRN ×2 (05:34→08:45)
[2018-05-16 05:49] LABS: BASOPHILS % (AUTO) 0.5 %; EOSINOPHILS # (AUTO) 0.4 10^3/uL (0.0-0.7); EOSINOPHILS % (AUTO) 4.6 %; HGB - HEMOGLOBIN 12.3 g/dL (12.0-16.0); LYMPHOCYTES % (AUTO) 12.1 %; MEAN CORPUSCULAR HEMOGLOBIN 30.1 pg (27.0-31.0); MEAN CORPUSCULAR HGB CONC 32.5 g/dL (32.0-36.0); MEAN CORPUSCULAR VOLUME 92.7 fL (81.0-99.0); MEAN PLATELET VOLUME 7.2 fL (7.9-10.8); MONOCYTES # (AUTO) 0.8 10^3/uL (0.0-1.0); MONOCYTES % (AUTO) 9.4 %; NEUTROPHILS # (AUTO) 6.2 10^3/uL (1.5-6.6); NEUTROPHILS % (AUTO) 73.4 %; PLT - PLATELET COUNT 280 10^3/uL (130-450); RED BLOOD COUNT 4.07 10^6/uL (4.20-5.40); RED CELL DISTRIBUTION WIDTH 14.6 % (12.0-15.0); WHITE BLOOD COUNT 8.4 x10^3/uL (4.8-10.8)
[2018-05-16 06:02] LABS: CALCIUM 8.7 mg/dL (8.5-10.3); CREATININE 0.5 mg/dL (0.4-1.0)
[2018-05-16] MEDS: PANTOPRAZOLE 40 MG TABLET PO SCH (06:27)
[2018-05-16] MEDS ORDERED: LEVOTHYROXINE 25 MCG TABLET ONE (06:40)
[2018-05-16] MEDS: LEVOTHYROXINE 112 MCG TABLET PO SCH (06:41)
[2018-05-16] MEDS: ACETAMINOPHEN 325 MG TABLET PO PRN (06:41)
[2018-05-16 08:23] VITALS: BP 115/60
[2018-05-16] MEDS ORDERED: SODIUM CHLORIDE 0.9% MINIBAG 100 ML IV ONE (08:26)
[2018-05-16] MEDS: AZITHROMYCIN INJ 500 MG in SODIUM CHLORIDE 0.9% 250 ML IV SCH (08:36)
[2018-05-16] MEDS: CHOLECALCIFEROL 400 UNIT TABLET PO SCH (08:38)
[2018-05-16] MEDS: CALCIUM CARB (OYSTER SHELL) 500 MG TABLET PO SCH (08:38)
--- NOTE | 2018-05-16 09:29 | Discharge Plan ---
Discharge Plan Disposition: Home, Self Care Condition: Stable Prescriptions: Azithromycin 250 mg PO DAILY #5 tablet Benzonatate [Tessalon Perle] 100 mg PO Q6H PRN #30 capsule PRN Reason: Cough Doxycycline Hyclate 100 mg PO BID #14 tablet Lactob/S.thermophl/Bifido [Vsl#3] 1 cap PO BIDWM #60 capsule Diet: Regular Activity Restrictions: Activity as Tolerated Shower Restrictions: No Weight Bearing: Full Weight Additional Instructions or Follow Up instructions: You were admitted for pneumonia and had right sided chest pain that was not cardiac in nature. Your sputum was sent to the lab and is still pending at the time of discharge. If this sample shows that a different antibiotic would be a better choice, I will personally call you with that update. Please continue your regular medications, and the antibiotics at home. You were found to need oxygen to be worn continuously which is being set up in order for you to take it home with you today. I have also given you some cough suppressants to use a home. This chest CT report advised to have follow up imaging in ~ 3 months which will have to be ordered by your PCP or wood boatbuilder. Please see your specialists as scheduled and your primary care provider within one week. Follow-Up Care: [facility] - Pulmonary No Smoking: If you smoke, Please STOP! Call for help. Follow-up with: Joslyn Rico PA-C [Primary Care Provider] -
--- NOTE | 2018-05-16 09:58 | DISCHARGE SUMMARY ---
Discharge Summary Admit Date: 05/14/18 Discharge Date: 05/16/18 Discharging Provider: DIANE Iglesias Primary Care Provider: Joslyn Rico Code Status: Attempt Resuscitation Condition at Discharge: Stable Discharge Disposition: 01 Home, Self Care - DIAGNOSES Admission Diagnoses: Chest pain, unspecified (R07.9) Pneumonia due to Methicillin resistant Staphylococcus aureus (J15.212) Other diseases of pulmonary vessels (I28.8) Hypothyroidism, unspecified (E03.9) Discharge Diagnoses with Status of Each Condition: Chest pain (R07.9) resolved. CAP (community acquired pneumonia) (J18.9) new on this admission, sputum sample still pending, antibiotics to continue at home. Hypoxia (R09.02) improved, but failed walking oxygen test. Home oxygen ordered. Pulmonary vasculitis (I28.8) chronic, sees a law enforcement officer, stable. Anxiety (F41.9) chronic, improved. Multiple pulmonary nodules determined by computed tomography of lung (R91.8) new on this hospital stay, results shared with the patient. Recommend 3 month follow up. Dependence on supplemental oxygen (Z99.81) new on this admission, home oxygen ordered to be sent with patient upon discharge. - HPI History of Present Illness: HPI per Dr. Whiteside: Patient is a 57-year-old female with a history of pulmonary vasculitis on methotrexate as well as hypothyroidism who presents today with a relatively sudden onset of chest pain at rest at approximately 4 PM this afternoon. Patient states she was riding in her car doing nothing unusual or exertional when she started to have pain in a fairly localized area to the right inferior aspect of the chest wall. She states it does not radiate nor does it seem to change with position or exacerbation or rest. She describes it as sharp and like a knife stabbing her in the to the chest. She went to the emergency room for evaluation where the initial acute coronary syndrome workup was initiated showing no acute findings on the EKG and a normal troponin initially. She also has an exacerbation of her chronic shortness of breath which has been present since her diagnosis of pulmonary vasculitis several years ago. She states that she did take a DuoNeb breathing treatment at home prior to going to the emergency room that was not helpful however she admits that she was quite panicky and is not sure if it was quite administered properly. In the emergency room she has not had a very high oxygen requirement waxing and waning between room air and 2-3 L of nasal cannula. Chest x-ray showed a possible consolidation, CT angiogram was also done that was only remarkable for possible consolidation. There is no pulmonary embolus, dissecting abdominal aneurysm or other acute findings. Dr. Bailon, the emergency physician who saw her in the ED did contact pulmonology at [facility] where she is receiving her care in the recommendation by them was to treat this as a typical community-acquired pneumonia without the need for steroids or other specialized treatment given the vasculitis diagnosis. Patient had a blood culture x2, followed by azithromycin and Rocephin and IV morphine for pain. Despite 2 doses of 4 mg of IV morphine however, the patient states that it only took the pain from a 10 to an 8 and she is still quite uncomfortable at the time of exam. She states that Dilaudid is not really an option for her because she has significant side effects. I was asked to admit the patient under observation for pain control of the chest pain and for the community-acquired pneumonia. - HOSPITAL COURSE Hospital Course: The patient was found to have a right sided pneumonia with several dominant areas in the right lung/increasing mediastinal and hilar adenopathy. A follow up chest CT in 3 months is recommended. She was treated with IV azithromycin, and IV doxycycline that were transitioned to PO upon discharge. The patient admitted to not fairing well due to overwhelming anxiety associated with this hospital stay and noted to have "too many complaints to explain". Due to this issue, it was medical decision to send her home to preserve her sanity. She continued to have a productive cough and a weak sample is pending at the time of this document. The patient underwent a oxygen walking desaturation study in which a [id number] encounter occurred to discuss the following findings: On room air the patient had an oxygen saturation of 90% at rest on room air, with ambulation on room air, oxygen saturation was 88%. After applying 1L per nasal cannula oxygen saturation increased to 92% and the patient ambulated about 300 feet in total. Disposition: The patient's , Jordan was present for the discharge exam and the patient was medically stable. She was transported via private car home with oxygen and prescriptions were sent to the pharmacy. - ALLERGIES Allergies/Adverse Reactions: Allergies Allergy/AdvReac Type Severity Reaction Status Date / Time Penicillins Allergy Hives Verified 05/14/18 18:09 - MEDICATIONS Home Medications: Ambulatory Orders Medication Instructions Recorded Confirmed Calcium Carbonate/Vitamin D3 1 each PO DAILY 03/25/14 05/15/18 [Calcium 600-Vit D3 200 Tablet] Albuterol [Ventolin Hfa] 2 puffs INH Q4H PRN 10/14/14 05/15/18 Levothyroxine [Synthroid] 112 mcg PO QDAC 04/07/15 05/15/18 [place]-3 Fatty Acids [Fish Oil] 1 cap PO DAILY 05/19/15 05/15/18 Ibuprofen 400 mg PO Q6H PRN 05/14/18 05/15/18 Methotrexate 15 mg PO MO 05/14/18 05/15/18 Turmeric Root Extract [Turmeric 500 mg PO DAILY 05/14/18 05/15/18 Curcumin] Ipratropium/Albuterol [Duoneb] 3 ml INH BID 05/15/18 05/15/18 Montelukast [Singulair] 10 mg PO QPM 05/15/18 05/15/18 Azithromycin 250 mg PO DAILY #5 tablet 05/16/18 Benzonatate [Tessalon Perle] 100 mg PO Q6H PRN #30 capsule 05/16/18 Doxycycline Hyclate 100 mg PO BID #14 tablet 05/16/18 Lactob/S.thermophl/Bifido [Vsl#3] 1 cap PO BIDWM #60 capsule 05/16/18 - PHYSICAL EXAM AT DISCHARGE General Appearance: positive: No acute distress, Alert, Anxious Eyes Bilateral: positive: PERRL ENT: positive: Pharynx nml, No signs of dehydration Neck: positive: Thyroid nml, No JVD, Trachea midline Respiratory: positive: Chest non-tender, No respiratory distress, Rhonchi Cardiovascular: positive: Regular rate & rhythm, No gallop Peripheral Pulses: positive: 2+ Abdomen: positive: Non-tender, Nml bowel sounds Back: positive: Nml inspection Skin: positive: Color nml, No rash, Warm, Dry Extremities: positive: Non-tender, Full ROM, Nml appearance, No pedal edema Neurologic/Psychiatric: positive: Oriented x3, CN's nml (2-12), Motor nml, Sensation nml, Depressed mood/affect, Other (anxiousness, tearful at times) Reflexes: Bicep (R): 3+, Bicep (L): 3+ - LABS Result Diagrams: 05/16/18 05:15 05/16/18 05:15 - DIAGNOSTIC IMAGING Diagnostic Imaging Results: Final report reviewed Diagnostic Imaging Results Comments: EXAM: CT ANGIOGRAM CHEST EXAM DATE: 05/14/2018 07:58 PM. IMPRESSION: 1. No evidence of pulmonary emboli. 2. Acute on chronic lung disease consisting of airway disease and extensive small peripheral lung infiltrates, several dominant areas in the right lung. Follow-up chest CT in 3 months recommended to confirm resolution following treatment. 3. Increasing mediastinal and hilar adenopathy. - SEPSIS Current Stage of Sepsis: Ruled out - FOLLOW UP Follow Up: Disposition: Home with home oxygen Condition: Stable Prescriptions: Azithromycin 250 mg PO DAILY #5 tablet Benzonatate [Tessalon Perle] 100 mg PO Q6H PRN #30 capsule, PRN Reason: Cough Doxycycline Hyclate 100 mg PO BID #14 tablet Lactob/S.thermophl/Bifido [Vsl#3] 1 cap PO BIDWM #60 capsule Additional Instructions or Follow Up instructions: You were admitted for pneumonia and had right sided chest pain that was not cardiac in nature. Your sputum was sent to the lab and is still pending at the time of discharge. If this sample shows that a different antibiotic would be a better choice, I will personally call you with that update. Please continue your regular medications, and the antibiotics at home. You were found to need oxygen to be worn continuously which is being set up in order for you to take it home with you today. I have also given you some cough suppressants to use a home. This chest CT report advised to have follow up imaging in ~ 3 months which will have to be ordered by your PCP or law enforcement officer. Please see your specialists as scheduled and your primary care provider within one week. - TIME SPENT Time Spent in Discharge (Minutes): 45
[2018-05-16] MEDS: LACTOB/S.THERMOPHL/BIFIDO CAPSULE PO SCH (10:07)
[2018-05-16] MEDS: POLYETHYLENE GLYCOL 3350 17 GM PACKET PO SCH (10:08)
[2018-05-16] MEDS: DOXYCYCLINE INJ 100 MG in SODIUM CHLORIDE 0.9% MINIBAG 100 ML IV SCH (10:08)
[2018-05-16] MEDS: SODIUM CHLORIDE FLUSH 0.9% 10 ML SYRINGE IVP SCH (10:38)
[2018-05-17] MEDS ORDERED: LEVOTHYROXINE 112 MCG TABLET PO SCH (07:00)
== END 2018-05-16 12:05 | disposition home or self-care (01) | DRG 195 ==
LOC: ED 17:59 → MS2 21:24 → MS3 05-15 16:12
PROVIDERS: ADMIT Family Medicine Sports Medicine; ATTEND Nurse Practitioner
DX: J18.1 Lobar pneumonia, unspecified organism (principal); R09.02 Hypoxemia; I28.8 Other diseases of pulmonary vessels; J43.9 Emphysema, unspecified; E03.9 Hypothyroidism, unspecified; M81.0 Age-related osteoporosis without current pathological fracture; F41.9 Anxiety disorder, unspecified; R59.0 Localized enlarged lymph nodes; Z99.81 Dependence on supplemental oxygen; Z79.899 Other long term (current) drug therapy; Z85.41 Personal history of malignant neoplasm of cervix uteri; Z92.21 Personal history of antineoplastic chemotherapy; Z88.0 Allergy status to penicillin
CPT/HCPCS: 36415; 71045; 71275; 80048; 80053; 83605; 83690; 84484; 85025; 87040; 87070; 87077; 87205; 87275; 87276; 93005; 94640; 94761; 96365; 96367; 96375; 96376; 99284

== ENCOUNTER 2019-02-06 15:47 | Outpatient (CLI) | payer BC ==
--- NOTE | 2019-02-07 10:26 | Mammography Report ---
Reason: SCREENING Procedure Date: 02/06/2019 Accession Number: [id number] / [id number] Procedure: SIMONE - Screening Mammo Dig Bilat CPT Code: FULL RESULT: EXAM: Screening Mammo Dig Bilat DATE: 02/06/2019 4:05 PM CLINICAL HISTORY: Screening encounter. History of nulliparity. TECHNIQUE: (B) - Bilateral CC, laterally exaggerated CC, MLO views were obtained. COMPARISON: 06/22/2017 through 04/09/2014. PARENCHYMAL PATTERN: (D) - The breast(s) demonstrate(s) heterogeneously dense fibroglandular parenchyma. FINDINGS: There are no suspicious masses, calcifications, or areas of distortion. IMPRESSION: Negative examination. BI-RADS category 1. RECOMMENDATION: (ANNUAL) - Recommend routine annual screening mammography. BI-RADS CATEGORY: (1) - Negative. STANDARD QUALIFYING STATEMENTS: 1. This examination was not reviewed with the aid of Computer-Aided Detection (CAD). 2. A negative or benign imaging report should not preclude biopsy if clinically suspicious findings are present. 3. Dense breasts may obscure an underlying neoplasm. 4. This examination was reviewed without the aid of 3D breast imaging (tomosynthesis).
== END 2019-02-06 15:48 | disposition home or self-care (01) ==
LOC: DI 15:47
DX: Z12.31 Encounter for screening mammogram for malignant neoplasm of breast (principal)
CPT/HCPCS: 77067

== ENCOUNTER 2020-04-13 15:11 | Outpatient (CLI) | payer OTHER ==
--- NOTE | 2020-04-13 16:39 | DEXA Report ---
PROCEDURE: Dexa Spine and/or Hip INDICATIONS: POST MENOPAUSAL TECHNIQUE: Dual energy x-ray absorptiometry (DXA) was performed on a [employer]. Regions measur ed are the AP Spine, femoral neck, and if needed forearm. COMPARISON: None. FINDINGS: Lumbar Spine: Bone Mineral Density 0.807 g/cm/cm,T score -3.1, unchanged Left Hip: Bone Mineral Density 0.685 g/cm/cm,T score -2.6, compared to -2.4 Left Femoral Neck: Bone Mineral Density 0.747 g/cm/cm, T score -2.1, compared to -2.0 (T score greater or equal to -1.0: NORMAL) (T score from -1.1 to -2.4: OSTEOPENIA) (T score less than or equal to -2.5 to: OSTEOPOROSIS) Impression: Stable osteoporosis within the lumbar spine as well as minimal progression of osteopenia in the left hip and femoral neck. Patients with diagnosis of osteoporosis or osteopenia should have regular bone mineral density assess ment. For those eligible for Medicare, routine testing is allowed once every 2 years. Testing frequ ency can be increased for patients who have rapidly progressing disease or for those who are receivin g medical therapy to restore bone mass. Reviewed by: Bernie Gilbert MD on 04/13/2020 4:38 PM PST Approved by: Bernie Gilbert MD on 04/13/2020 4:38 PM PST Station ID: [id number]
== END 2020-04-13 15:12 | disposition home or self-care (01) ==
LOC: DI 15:11
PROVIDERS: ATTEND Physician Assistant Medical
DX: M81.0 Age-related osteoporosis without current pathological fracture (principal)

== ENCOUNTER 2020-07-08 15:33 | Outpatient (CLI) | payer OTHER ==
--- NOTE | 2020-07-13 09:31 | Mammography Report ---
BILATERAL DIGITAL SCREENING MAMMOGRAM 3D/2D: 07/08/2020 CLINICAL: Routine screening. Comparison is made to exams dated: 02/06/2019 mammogram, 06/22/2017 mammogram, 05/18/2016 mammogram, and 04/30/2015 mammogram - [facility]. The tissue of both breasts is extremely dense, which lowers the sensitivity of mammography. No significant masses, calcifications, or other findings are seen in either breast. There has been no significant interval change. IMPRESSION: NEGATIVE There is no mammographic evidence of malignancy. A 1 year screening mammogram is recommended. This exam was interpreted at Station ID: [id number]. NOTE: For mammograms, a report in lay terms will be sent to the patient. Approximately 15% of breast malignancies will not be visualized mammographically. In the management of a palpable breast mass, a negative mammogram must not discourage biopsy of a clinically suspicious lesion. Electronically Signed By: Kostas Mobley M.D. ar/penrad:07/10/2020 13:53:33 ACR BI-RADS Category 1: Negative 3341F PARENCHYMAL PATTERN: (VD) - The breast(s) demonstrate(s) extremely dense parenchyma, limiting the sen sitivity of mammography. BI-RADS CATEGORY: (1) - 1 RECOMMENDATION: (ANNUAL) - Recommend routine annual screening mammography. [id number] 1 year screening LATERALITY: (B)
== END 2020-07-08 15:34 | disposition home or self-care (01) ==
LOC: DI 15:33
DX: Z12.31 Encounter for screening mammogram for malignant neoplasm of breast (principal)

== ENCOUNTER 2022-04-18 09:51 | Outpatient (CLI) | payer OTHER ==
--- NOTE | 2022-04-19 09:55 | Mammography Report ---
BILATERAL DIGITAL SCREENING MAMMOGRAM 3D/2D: 04/18/2022 CLINICAL: Routine screening. Comparison is made to exams dated: 07/08/2020 mammogram, 02/06/2019 mammogram, 06/22/2017 mammogram, 05/18 mammogram, 04/30/2015 mammogram, and 04/09/2014 mammogram - [facility]. Both breasts are extremely dense, which lowers the sensitivity of mammography (category d />75% gland ular tissue). No significant masses, calcifications, or other findings are seen in either breast. There has been no significant interval change. IMPRESSION: NEGATIVE There is no mammographic evidence of malignancy. A 1 year screening mammogram is recommended. Based on the Tyrer Cuzick model (a risk assessment model) the patients lifetime risk is 13.2% and he r 10 year risk is 5.8%. According to the ACR, ACS, and NCCN guidelines, an annual breast MRI exam patrice ng with mammogram is recommended if the patients lifetime risk is 20% or greater. This exam was interpreted at Station ID: [id number]. NOTE: For mammograms, a report in lay terms will be sent to the patient. Approximately 15% of breast malignancies will not be visualized mammographically. In the management of a palpable breast mass, a negative mammogram must not discourage biopsy of a clinically suspicious lesion. Electronically Signed By: Bennett ortiz/óscarrad:04/18/2022 10:57:36 ACR BI-RADS Category 1: Negative 3341F PARENCHYMAL PATTERN: (VD) - The breast(s) demonstrate(s) extremely dense parenchyma, limiting the sen sitivity of mammography. BI-RADS CATEGORY: (1) - 1 RECOMMENDATION: (ANNUAL) - Recommend routine annual screening mammography. [id number] 1 year screening LATERALITY: (B)
== END 2022-04-18 09:52 | disposition home or self-care (01) ==
LOC: DI 09:51
DX: Z12.31 Encounter for screening mammogram for malignant neoplasm of breast (principal)

== ENCOUNTER 2022-04-18 09:52 | Outpatient (CLI) | payer OTHER ==
--- NOTE | 2022-04-18 13:07 | DEXA Report ---
PROCEDURE: Dexa Spine and/or Hip INDICATIONS: OSTEOPOROSIS TECHNIQUE: Dual energy x-ray absorptiometry (DXA) was performed on a KIHE[employer] System. Regions measur ed are the AP Spine, femoral neck, and if needed forearm. COMPARISON: None. FINDINGS: Lumbar Spine: Bone Mineral Density 0.796 g/cm/cm,T score -3.2, Left Femoral Neck: Bone Mineral Density 0.706 g/cm/cm, T score -2.4, Left Hip: Bone Mineral Density 0.685 g/cm/cm,T score -2.6, (T score greater or equal to -1.0: NORMAL) (T score from -1.1 to -2.4: OSTEOPENIA) (T score less than or equal to -2.5 to: OSTEOPOROSIS) Impression: Findings consistent with osteoporosis involving the lumbar spine as well as the left hip. Patients with diagnosis of osteoporosis or osteopenia should have regular bone mineral density assess ment. For those eligible for Medicare, routine testing is allowed once every 2 years. Testing frequ ency can be increased for patients who have rapidly progressing disease or for those who are receivin g medical therapy to restore bone mass. Reviewed by: Derrek Mahoney MD on 04/18/2022 1:06 PM PST Approved by: Derrek Mahoney MD on 04/18/2022 1:06 PM PST Station ID: [id number]
== END 2022-04-18 09:53 | disposition home or self-care (01) ==
LOC: DI 09:52
PROVIDERS: ATTEND Physician Assistant Medical
DX: M81.0 Age-related osteoporosis without current pathological fracture (principal)

== ENCOUNTER 2023-04-14 14:31 | Outpatient (CLI) | payer OTHER ==
--- NOTE | 2023-04-17 10:59 | Mammography Report ---
BILATERAL DIGITAL SCREENING MAMMOGRAM 3D/2D: 04/14/2023 CLINICAL: Routine screening. Comparison is made to exams dated: 04/18/2022 mammogram, 07/08/2020 mammogram, 02/06/2019 mammogram, 05/18/2016 mammogram, 06/22/2017 mammogram, and 04/30/2015 mammogram - [facility]. Both breasts are extremely dense, which lowers the sensitivity of mammography (category d />75% gland ular tissue). There is possible developing irregular architectural distortion with an indistinct margin in the righ t breast posterior depth superior region seen on the mediolateral oblique view only. No other significant masses, calcifications, or other findings are seen in either breast. IMPRESSION: INCOMPLETE: NEEDS ADDITIONAL IMAGING EVALUATION The possible developing irregular architectural distortion in the right breast is indeterminate. Add itional views with possible ultrasound are recommended. Based on the Tyrer Cuzick model (a risk assessment model) the patients lifetime risk is 12.8% and he r 10 year risk is 5.8%. According to the ACR, ACS, and NCCN guidelines, an annual breast MRI exam patrice ng with mammogram is recommended if the patients lifetime risk is 20% or greater. This exam was interpreted at Station ID: [id number]. NOTE: For mammograms, a report in lay terms will be sent to the patient. Approximately 15% of breast malignancies will not be visualized mammographically. In the management of a palpable breast mass, a negative mammogram must not discourage biopsy of a clinically suspicious lesion. Electronically Signed By: Mimi guevara/ting:04/14/2023 17:38:17 ACR BI-RADS Category 0: Incomplete 3340F PARENCHYMAL PATTERN: (VD) - The breast(s) demonstrate(s) extremely dense parenchyma, limiting the sen sitivity of mammography. BI-RADS CATEGORY: (0) - 0 Mammo and [place] [id number] Immediate follow-up LATERALITY: (B)
== END 2023-04-14 14:32 | disposition home or self-care (01) ==
LOC: DI 14:31
DX: Z12.31 Encounter for screening mammogram for malignant neoplasm of breast (principal); R92.343 Mammographic extreme density, bilateral breasts; R92.8 Other abnormal and inconclusive findings on diagnostic imaging of breast

== ENCOUNTER 2023-04-20 07:29 | Outpatient (CLI) | payer OTHER ==
[2023-04-20 07:38] LABS: BASOPHILS # (AUTO) 0.1 10^3/uL (0.0-0.1); BASOPHILS % (AUTO) 1.4 %; EOSINOPHILS # (AUTO) 0.3 10^3/uL (0.0-0.7); EOSINOPHILS % (AUTO) 5.2 %; HCT - HEMATOCRIT 44.5 % (37.0-47.0); HGB - HEMOGLOBIN 14.2 g/dL (12.0-16.0); LYMPHOCYTES # (AUTO) 1.4 10^3/uL (1.5-3.5); MEAN CORPUSCULAR HEMOGLOBIN 32.2 pg (27.0-31.0); MEAN CORPUSCULAR HGB CONC 31.9 g/dL (32.0-36.0); MEAN CORPUSCULAR VOLUME 100.9 fL (81.0-99.0); MEAN PLATELET VOLUME 8.8 fL (7.9-10.8); MONOCYTES # (AUTO) 0.4 10^3/uL (0.0-1.0); MONOCYTES % (AUTO) 5.7 %; NEUTROPHILS # (AUTO) 4.2 10^3/uL (1.5-6.6); NEUTROPHILS % (AUTO) 65.5 %; PLT - PLATELET COUNT 323 10^3/uL (130-450); RED BLOOD COUNT 4.41 10^6/uL (4.20-5.40); WHITE BLOOD COUNT 6.4 x10^3/uL (4.8-10.8)
[2023-04-20 07:59] LABS: ALBUMIN 4.5 g/dL (3.2-5.5); ALBUMIN/GLOBULIN RATIO 1.8 (1.0-2.2); ALKALINE PHOSPHATASE 64 IU/L (42-121); ALT ALANINE AMINOTRANSFERASE 18 IU/L (10-60); AST ASPARTATE AMINOTRANSFERASE 22 IU/L (10-42); BILIRUBIN,TOTAL 0.4 mg/dL (0.2-1.0); BUN - BLOOD UREA NITROGEN 16 mg/dL (6-20); CALCIUM 9.6 mg/dL (8.5-10.3); CARBON DIOXIDE - CO2 35 mmol/L (21-32); CHLORIDE 102 mmol/L (101-111); CHOL/HDL RATIO 2.6 (<4.4); CHOLESTEROL 225 mg/dL; CREATININE 0.7 mg/dL (0.6-1.3); GFR - MDRD 85 (>89); GLUCOSE 101 mg/dL (74-104); HDL CHOLESTEROL 85 mg/dL; LDL CHOLESTEROL,CALCULATED 127 mg/dL; LDL/HDL RATIO 1.5 (<4.4); SODIUM 140 mmol/L (135-145); TRIGLYCERIDES 65 mg/dL (48-352); VLDL CHOLESTEROL 13 mg/dL
[2023-04-20 08:15] LABS: THYROID STIMULATING HORMONE 7.59 uIU/mL (0.34-5.60)
== END 2023-04-20 07:30 | disposition home or self-care (01) ==
LOC: LAB 07:29
PROVIDERS: ATTEND Physician Assistant Medical
DX: Z00.00 Encounter for general adult medical examination without abnormal findings (principal); E78.5 Hyperlipidemia, unspecified; E03.9 Hypothyroidism, unspecified
CPT/HCPCS: 36415; 80053; 80061; 83721; 84439; 84443; 85025

== ENCOUNTER 2023-04-25 11:22 | Day surgery (SDC) | payer OTHER ==
[2023-04-25] MEDS ORDERED: LACTATED RINGERS 1,000 ML IV ONE ×2 (11:32)
--- NOTE | 2023-04-25 13:07 | ANESTHESIA ---
Pre-Anesthesia VS, & Labs - Diagnosis screening - Procedure colonoscopy Vital Signs: Temp Pulse Resp BP Pulse Ox O2 Flow Rate 36.2 C L 70 17 123/81 H 99 04/25/23 11:38 04/25/23 11:38 04/25/23 11:38 04/25/23 11:38 04/25/23 11:38 Height: 5 ft 9 in Weight (kg): 50.9 kg Body Mass Index: 16.5 BMI Classification: Underweight - NPO Other (last water at 830am, prep as directed) - Is Patient ?: No Home Medications and Allergies Albuterol [Ventolin Hfa] 2 puffs INH Q4H PRN 10/14/14 Levothyroxine [Synthroid] 88 mcg PO QDAC 04/07/15 Methotrexate [Methotrexate Sodium] 15 mg PO MO 05/14/18 Ipratropium/Albuterol [Duoneb] 3 ml INH BID 05/15/18 Allergies/Adverse Reactions: Allergies Allergy/AdvReac Type Severity Reaction Status Date / Time hydromorphone [From Dilaudid] Allergy Unknown Verified 05/24/18 13:37 Penicillins Allergy Hives Verified 05/14/18 18:09 Anes History & Medical History - Anesthetic History Anesthesia Complications: reports: No previous complications - Medical History Cardiovascular: reports: None Pulmonary: reports: Shortness of breath, Other (pulmonary vasculitis) Gastrointestinal: reports: None Urinary: reports: None Neuro: reports: None Musculoskeletal: reports: Osteoporosis Endocrine/Autoimmune: reports: HyPOthyroidism Blood Disorders: reports: None Skin: reports: None Smoking Status: Never smoker Psychosocial: reports: Alcohol (beer a day), Cannabis (edible, to sleep nightly) - Surgical History General: reports: Colonoscopy Gynecologic: reports: Hysterectomy Exam General: Alert, Oriented x3 Dental: WNL Mouth Opening: Greater than 4 Fingerbreadths Neck Mobility: Normal Mallampati classification: I Thyromental Distance: greater than 6 cm Respiratory: Lungs clear Cardiovascular: Regular rate, Normal S1, Normal S2 Plan Anesthesia Type: Total IV Consent for Procedure(s) Verified and Reviewed: Yes Code Status: Attempt Resuscitation ASA classification: 3-Severe systemic disease Is this case an emergency?: Yes
[2023-04-25] MEDS ORDERED: PROPOFOL 200 MG/20 ML VIAL IVP ONE ×2 (13:16→13:36)
[2023-04-25] MEDS ORDERED: LACTATED RINGERS 750 ML IV ONE (13:49)
--- NOTE | 2023-04-25 14:09 | ANESTHESIA POST OP EVALUATION ---
Anesthesia Post Eval - Post Anesthesia Eval Vitals: Last Vital Signs Temp 36.4 C L 04/25/23 13:49 Pulse 68 04/25/23 14:01 Resp 14 04/25/23 14:01 BP 107/73 04/25/23 14:01 Pulse Ox 97 04/25/23 14:01 O2 Flow Rate CV Function Including HR & BP: Stable Pain Control: Satisfactory Nausea & Vomiting: Negative Mental Status: Baseline Respiratory Status: Airway Patent Hydration Status: Satisfactory Anesthesia Complications: None
[2023-04-25 14:10] VITALS: BP 107/73; O2SAT 97
== END 2023-04-25 11:23 | disposition home or self-care (01) ==
LOC: SDS 11:22
PROVIDERS: ATTEND Surgery
DX: Z12.11 Encounter for screening for malignant neoplasm of colon (principal); J44.9 Chronic obstructive pulmonary disease, unspecified
CPT/HCPCS: G0121; J7120

== ENCOUNTER 2023-05-09 10:50 | Outpatient (CLI) | payer OTHER ==
--- NOTE | 2023-05-10 08:13 | Ultrasound Report ---
LIMITED ULTRASOUND OF RIGHT BREAST: 05/09/2023 CLINICAL: Patient returns today to evaluate a focal asymmetry in the right breast. Comparison is made to exams dated: 05/09/2023 mammogram, 04/14/2023 mammogram, 04/18/2022 mammogram, mammogram, 02/06/2019 mammogram, and 06/22/2017 mammogram - [facility]. Ultrasound of the right breast 11 o'clock region was performed. Nash scale images of the real-time e xamination were reviewed. No significant abnormalities were seen sonographically in the right breast. Specifically, no finding to correspond to the patient's partially resolved, partially persistent screening mammographic archi tectural distortion. IMPRESSION: PROBABLY BENIGN There is no sonographic correlate to the patient's partially persistent architectural distortion. A f ollow-up right mammogram in 6 months is recommended to demonstrate stability. Findings and recommendations were conveyed to the patient at time of exam. This exam was interpreted at Station ID: [id number]. Electronically Signed By: Mimi guevara/:05/09/2023 11:43:17 Ultrasound BI-RADS: 3 Probably benign BI-RADS CATEGORY: (3) - 3 Mammogram [id number] 6 month follow-up LATERALITY: (R)
--- NOTE | 2023-05-10 08:13 | Mammography Report ---
UNILATERAL RIGHT DIGITAL DIAGNOSTIC MAMMOGRAM 3D/2D WITH SPOT COMPRESSION: 05/09/2023 CLINICAL: Patient returns today to evaluate an asymmetry in the right breast. Comparison is made to exams dated: 04/14/2023 mammogram, 04/18/2022 mammogram, 07/08/2020 mammogram, mammogram, 06/22/2017 mammogram, and 05/18/2016 mammogram - [facility]. The right breast is extremely dense, which lowers the sensitivity of mammography (category d />75% gl andular tissue). There is possible irregular architectural distortion with an indistinct margin in the right breast po sterior depth superior region is not seen in additional views. This is less prominent but persists o n spot compression. No other significant masses or calcifications are seen in the breast. IMPRESSION: INCOMPLETE: NEEDS ADDITIONAL IMAGING EVALUATION The possible irregular architectural distortion in the right breast somewhat persists with spot compr ession, but not well seen on additional views and remains indeterminate. Ultrasound is recommended f or full evaluation of this area. This was performed immediately following this exam. Based on the Tyrer Cuzick model (a risk assessment model) the patients lifetime risk is 12.8% and he r 10 year risk is 5.8%. According to the ACR, ACS, and NCCN guidelines, an annual breast MRI exam patrice ng with mammogram is recommended if the patients lifetime risk is 20% or greater. This exam was interpreted at Station ID: [id number]. NOTE: For mammograms, a report in lay terms will be sent to the patient. Approximately 15% of breast malignancies will not be visualized mammographically. In the management of a palpable breast mass, a negative mammogram must not discourage biopsy of a clinically suspicious lesion. Electronically Signed By: Mimi guevara/:05/09/2023 11:37:56 ACR BI-RADS Category 0: Incomplete 3340F PARENCHYMAL PATTERN: (VD) - The breast(s) demonstrate(s) extremely dense parenchyma, limiting the sen sitivity of mammography. BI-RADS CATEGORY: (0) - 0 Ultrasound [id number] Immediate follow-up LATERALITY: (B)
== END 2023-05-09 10:51 | disposition home or self-care (01) ==
LOC: DI 10:50
PROVIDERS: ATTEND Physician Assistant Medical
DX: R92.8 Other abnormal and inconclusive findings on diagnostic imaging of breast (principal); R92.341 Mammographic extreme density, right breast

== ENCOUNTER 2023-12-27 10:53 | Outpatient (CLI) | payer OTHER ==
--- NOTE | 2023-12-28 08:01 | Mammography Report ---
UNILATERAL RIGHT DIGITAL DIAGNOSTIC MAMMOGRAM 3D/2D WITH EXAGGERATED CC: 12/27/2023 CLINICAL: Patient returns for a 6 month follow up of the right breast. Comparison is made to exams dated: 05/09/2023 mammogram, 04/14/2023 mammogram, 04/18/2022 mammogram, mammogram, 02/06/2019 mammogram, and 06/22/2017 mammogram - [facility]. The right breast is extremely dense, which lowers the sensitivity of mammography (category d />75% gl andular tissue). The possible irregular architectural distortion in the right breast posterior depth superior region s een on the mediolateral oblique view only is not seen in additional views. This is not significantly changed. Right breast is stable. No other significant masses or calcifications are seen in the breast. IMPRESSION: PROBABLY BENIGN The possible irregular architectural distortion in the right breast is not significantly different an d therefore is probably benign. A follow-up right mammogram in 6 months is recommended to demonstrate stability. The patient will be due for bilateral mammograms at that same visit. [facility]. Based on the Tyrer Cuzick model (a risk assessment model) the patient's lifetime risk is 12.4% and he r 10 year risk is 5.8%. According to the ACR, ACS, and NCCN guidelines, an annual breast MRI exam patrice ng with mammogram is recommended if the patient's lifetime risk is 20% or greater. This exam was interpreted at Station ID: [id number]. NOTE: For mammograms, a report in lay terms will be sent to the patient. Approximately 15% of breast malignancies will not be visualized mammographically. In the management of a palpable breast mass, a negative mammogram must not discourage biopsy of a clinically suspicious lesion. Electronically Signed By: Mimi guevara/:12/27/2023 14:45:23 ACR BI-RADS Category 3: Probably benign 3343F PARENCHYMAL PATTERN: (VD) - The breast(s) demonstrate(s) extremely dense parenchyma, limiting the sen sitivity of mammography. BI-RADS CATEGORY: (3) - 3 Mammogram [id number] 6 month follow-up LATERALITY: (R)
== END 2023-12-27 10:54 | disposition home or self-care (01) ==
LOC: DI 10:53
PROVIDERS: ATTEND Physician Assistant Medical
DX: R92.8 Other abnormal and inconclusive findings on diagnostic imaging of breast (principal)

== ENCOUNTER 2024-08-04 22:04 | Observation (INO) ==
--- NOTE | 2024-08-04 22:51 | ED Physician Documentation ---
History of Present Illness Stated complaint Stated Complaint: SOA/BACK PX Chief complaint Chief Complaint: Allergic Rx History obtained from History obtained from: Patient and Family (Spouse) Additonal information Additional information: 63-year-old woman with history of pulmonary vasculitis presents with left upper back pain, dizziness, and difficulty taking a deep breath with tachycardia noted at home on home monitoring today as well as chills overnight. Patient had the shingles vaccine yesterday as did her . He said that he experienced some of the same symptoms himself but is feeling better. However she is not. Denies nausea vomiting diarrhea fever itchiness throat tightness or swelling.Denies chest pain, cough Meds/Allgy Home Medications Ambulatory Orders Medication Instructions Recorded Confirmed ipratropium 0.5 mg-albuterol 3 mg 3 ml inhalation BID PRN shortness 03/18/24 08/04/24 (2.5 mg base)/3 mL nebulization of breath or wheezing #180 mL soln fluticasone 250 mcg-salmeterol 50 1 inh inhalation BID 05/01/24 08/04/24 mcg/dose blistr powdr for inhalation (Advair Diskus) albuterol sulfate 90 mcg/actuation 2 puff inhalation Q4H PRN wheezing 05/06/24 08/04/24 aerosol inhaler (Ventolin HFA) levothyroxine 88 mcg capsule 88 mcg PO QDAY #90 caps 05/06/24 08/04/24 methotrexate sodium 2.5 mg tablet 15 mg PO QWEEK 05/06/24 08/04/24 Allergies Allergies Allergy/AdvReac Type Severity Reaction Status Date / Time hydromorphone (From Dilaudid) Allergy Unknown Verified 08/04/24 22:24 Penicillins Allergy Hives Verified 08/04/24 22:24 PFSH Active Problems All Active Problems (Updated 05/06/24 @ 08:00 by Joslyn Rico PA-C) Preventative health care (Acute) Hypothyroidism (Acute) Hyperlipidemia (Acute) Osteoporosis (Acute) Cervical cancer (Acute) Interstitial lung disease (Acute) Pulmonary vasculitis (Acute) Hypoxemia (Acute) Social History Social History Smoking Status: Never smoker Number of Years Smoked: 0 How many cigarettes a day do you smoke? (20 cigarettes=1 Pk): 0 Do you dip or chew tobacco?: No Patient requests smoking cessation consult: No Initiate information on smoking cessation: No Living arrangement: At home Living Condition: With spouse/s.o. Relationship: Sitter only Do you feel safe in your home environment?: Yes Suffered physical, verbal, emotional, or financial abuse?: No History of Abuse: No Frequency: Weekly POLST Patient has POLST: No POLST Status: Full Code Exam Constitutional normal general appearance, no apparent distress and average body habitus HENMT normocephalic, head/scalp atraumatic and oropharynx normal Eyes PERRL and EOMs intact bilaterally Neck/C-Spine visual inspection normal Chest inspection of chest normal Respiratory BL coarse breath sounds Cardiovascular tachycardic rate, regular rhythm Gastrointestinal abdomen normal to inspection, abdomen soft to palpation and nontender to pal pation Results Vitals Vitals: Vital Signs - 24 hr 08/04/24 22:18 08/04/24 22:46 08/04/24 22:46 Temperature 36.7 C Temperature Source Tympanic Pulse Rate 110 H 100 Respiratory Rate 23 24 Blood Pressure 100/65 81/63 L O2 Saturation 95 97 Oxygen Delivery Method Nasal Cannula O2 Source Nasal cannula Nasal cannula Oxygen Flow Rate If not protocol: Oxygen Flow, liters/minute 3 4 4 Pain Intensity 9 7 08/05/24 00:38 08/05/24 01:21 08/05/24 01:43 Temperature Temperature Source Pulse Rate 91 94 Respiratory Rate 19 20 Blood Pressure 101/71 O2 Saturation 95 Oxygen Delivery Method O2 Source Nasal cannula Nasal cannula Oxygen Flow Rate If not protocol: Oxygen Flow, liters/minute 4 4 Pain Intensity 6 7 08/05/24 01:50 08/05/24 04:00 08/05/24 04:02 Temperature 36.9 C Temperature Source Oral Pulse Rate 71 Respiratory Rate 16 Blood Pressure 89/53 L O2 Saturation 97 Oxygen Delivery Method O2 Source Room air Oxygen Flow Rate If not protocol: Oxygen Flow, liters/minute Pain Intensity 5 3 08/05/24 04:09 08/05/24 04:58 08/05/24 05:46 Temperature 36.9 C Temperature Source Oral Pulse Rate 77 69 Respiratory Rate 24 Blood Pressure 91/69 81/50 L O2 Saturation 98 100 Oxygen Delivery Method Nasal Cannula O2 Source Nasal cannula Nasal cannula Oxygen Flow Rate If not protocol: Oxygen Flow, liters/minute 4 3 Pain Intensity 08/05/24 05:46 08/05/24 06:20 08/05/24 06:36 Temperature Temperature Source Pulse Rate 71 71 Respiratory Rate 16 22 Blood Pressure 83/51 L 89/57 L O2 Saturation 99 97 Oxygen Delivery Method Nasal Cannula O2 Source Nasal cannula Nasal cannula Oxygen Flow Rate 3 If not protocol: Oxygen Flow, liters/minute 3 3 Pain Intensity Oxygen O2 Source Nasal cannula Oxygen Flow Rate 3 Labs Labs: Laboratory Tests 08/04/24 08/04/24 08/05/24 22:52 22:55 00:38 WBC 23.1 H RBC 4.43 Hgb 13.7 Hct 43.6 MCV 98.4 MCH 30.9 MCHC 31.4 L RDW 13.4 Plt Count 254 MPV 9.1 Neut # (Auto) 20.7 H Lymph # (Auto) 0.7 L [place] # (Auto) 1.4 H Eos # (Auto) 0.0 Baso # (Auto) 0.1 Absolute Nucleated RBC 0.00 Band Neuts % (Manual) Not Reportable Abnorm Lymph % (Manual) Not Reportable Nucleated RBC % 0.0 Neutrophils # (Manual) Not Reportable Lymphocytes # (Manual) Not Reportable Monocytes # (Manual) Not Reportable Eosinophils # (Manual) Not Reportable Basophils # (Manual) Not Reportable Differential Comment MANUAL=AUTO DIFF WBC Morphology NORMAL APPEARANCE Platelet Estimate NORMAL (130-450,000) Platelet Morphology NORMAL APPEARANCE RBC Morph Micro Appear NORMAL APPEARANCE Sodium 136 Potassium 4.0 Chloride 98 L Carbon Dioxide 31 Anion Gap 7.0 BUN 22 H Creatinine 0.8 Estimated GFR (MDRD) 72 L Glucose 115 H Lactic Acid 0.9 Calcium 9.1 Total Bilirubin 0.5 AST 14 ALT 12 Alkaline Phosphatase 50 Troponin I High Sens 3.5 Total Protein 6.5 Albumin 4.0 Globulin 2.5 Albumin/Globulin Ratio 1.6 Lipase 11 Nasal Adenovirus (PCR) NOT DETECTED Nasal B. parapertussis DNA (PCR) NOT DETECTED Nasal Coronavir 229E PCR NOT DETECTED Nasal Coronavir HKU1 PCR NOT DETECTED Nasal Coronavir NL63 PCR NOT DETECTED Nasal Coronavir OC43 PCR NOT DETECTED Nasal Enterovir/Rhinovir PCR NOT DETECTED Nasal Influenza B PCR NOT DETECTED Nasal Influenza A PCR NOT DETECTED Nasal Parainfluen 1 PCR NOT DETECTED Nasal Parainfluen 2 PCR NOT DETECTED Nasal Parainfluen 3 PCR NOT DETECTED Nasal Parainfluen 4 PCR NOT DETECTED Nasal RSV (PCR) NOT DETECTED Nasal B.pertussis DNA PCR NOT DETECTED Nasal C.pneumoniae (PCR) NOT DETECTED Mikie Human Metapneumo PCR NOT DETECTED Nasal M.pneumoniae (PCR) NOT DETECTED Nasal SARS-CoV-2 (PCR) NOT DETECTED 08/05/24 04:59 WBC RBC Hgb Hct MCV MCH MCHC RDW Plt Count MPV Neut # (Auto) Lymph # (Auto) [place] # (Auto) Eos # (Auto) Baso # (Auto) Absolute Nucleated RBC Band Neuts % (Manual) Abnorm Lymph % (Manual) Nucleated RBC % Neutrophils # (Manual) Lymphocytes # (Manual) Monocytes # (Manual) Eosinophils # (Manual) Basophils # (Manual) Differential Comment WBC Morphology Platelet Estimate Platelet Morphology RBC Morph Micro Appear Sodium Potassium Chloride Carbon Dioxide Anion Gap BUN Creatinine Estimated GFR (MDRD) Glucose Lactic Acid 0.7 Calcium Total Bilirubin AST ALT Alkaline Phosphatase Troponin I High Sens Total Protein Albumin Globulin Albumin/Globulin Ratio Lipase Nasal Adenovirus (PCR) Nasal B. parapertussis DNA (PCR) Nasal Coronavir 229E PCR Nasal Coronavir HKU1 PCR Nasal Coronavir NL63 PCR Nasal Coronavir OC43 PCR Nasal Enterovir/Rhinovir PCR Nasal Influenza B PCR Nasal Influenza A PCR Nasal Parainfluen 1 PCR Nasal Parainfluen 2 PCR Nasal Parainfluen 3 PCR Nasal Parainfluen 4 PCR Nasal RSV (PCR) Nasal B.pertussis DNA PCR Nasal C.pneumoniae (PCR) Mikie Human Metapneumo PCR Nasal M.pneumoniae (PCR) Nasal SARS-CoV-2 (PCR) PD Medical Decision Making ED course ED course: 63-year-old woman with pmh pulmonary vasculitis presents with shortness of breath, chills, left upper back pain, dizziness status post shingles vaccine yesterday. She does not appear to be having a clear-cut allergic reaction. Her vital signs do meet SIRS criteria. Patient has baseline poor lung function per her report and is satting 97% on 4 L nasal cannula. medical staff credentialing coordinator tell me that at triage she was 89% on room air. This may be her baseline or related to pathology therefore we will continue to monitor. Normal saline bolus was ordered for her tachycardia and we will readdress. EKG shows sinus tachycardia without any ST elevation or acute changes concerning for ischemia. Plan to evaluate chest x-ray and lab work as well. Labwork shows WBC 23.1 with neutrophil predominance. cxr shows likely pneumonia and underlying lung disease. 10mg decadron, rocephin and azithromycin iv ordered. added on blood cultures and lactic acid. No beds available so patient will board for admission for sepsis 2/2 pneumonia. Discharge Plan Discharge Prescriptions: No Action ipratropium-albuterol 0.5 mg-3 mg(2.5 mg base)/3 mL solution for nebulization 3 ml inhalation BID PRN (Reason: shortness of breath or wheezing) Qty: 180 1RF methotrexate sodium 2.5 mg tablet 15 mg PO QWEEK fluticasone propion-salmeterol [Advair Diskus] 250-50 mcg/dose blister with device 1 inh inhalation BID albuterol sulfate [Ventolin HFA] 90 mcg/actuation HFA aerosol inhaler 2 puff inhalation Q4H PRN (Reason: wheezing) levothyroxine 88 mcg capsule 88 mcg PO QDAY Qty: 90 3RF Rx Instructions: for thyroid Print Language: Belizean Stand Alone Forms: PCP List
[2024-08-04 22:57] LABS: BASOPHILS # (AUTO) 0.1 10^3/uL (0.0-0.1); BASOPHILS % (AUTO) 0.4 %; HCT - HEMATOCRIT 43.6 % (37.0-47.0); HGB - HEMOGLOBIN 13.7 g/dL (12.0-16.0); LYMPHOCYTES # (AUTO) 0.7 10^3/uL (1.5-3.5); LYMPHOCYTES % (AUTO) 2.9 %; MEAN CORPUSCULAR HEMOGLOBIN 30.9 pg (27.0-31.0); MEAN CORPUSCULAR HGB CONC 31.4 g/dL (32.0-36.0); MEAN CORPUSCULAR VOLUME 98.4 fL (81.0-99.0); MEAN PLATELET VOLUME 9.1 fL (7.9-10.8); MONOCYTES # (AUTO) 1.4 10^3/uL (0.0-1.0); MONOCYTES % (AUTO) 6.1 %; NEUTROPHILS # (AUTO) 20.7 10^3/uL (1.5-6.6); NEUTROPHILS % (AUTO) 89.5 %; PLT - PLATELET COUNT 254 10^3/uL (130-450); RED BLOOD COUNT 4.43 10^6/uL (4.20-5.40); RED CELL DISTRIBUTION WIDTH 13.4 % (12.0-15.0); WHITE BLOOD COUNT 23.1 x10^3/uL (4.8-10.8)
[2024-08-04] MEDS: SODIUM CHLORIDE 0.9% 1,000 ML IV STA (23:00)
[2024-08-04 23:16] LABS: ALBUMIN/GLOBULIN RATIO 1.6 (1.0-2.2); BILIRUBIN,TOTAL 0.5 mg/dL (0.2-1.0); CALCIUM 9.1 mg/dL (8.5-10.3); CREATININE 0.8 mg/dL (0.6-1.3); TOTAL PROTEIN 6.5 g/dL (6.4-8.9)
[2024-08-04 23:18] LABS: TROPONIN I HIGH SENSITIVITY 3.5 ng/L (2.3-14.8)
--- NOTE | 2024-08-04 23:18 | XRAY Report ---
PROCEDURE: XR Chest 1V INDICATIONS: SOA TECHNIQUE: One view of the chest was acquired. COMPARISON: 05/14/2018 FINDINGS: Surgical changes and devices: None. Lungs and pleura: No pneumothorax or substantial pleural effusion seen. Chronic diffuse interstitial prominence likely related to chronic interstitial lung disease. Patchy opacities of the right midlun g zone. No dense consolidation. Mediastinum: Mediastinal contours appear normal. Heart size is normal. Bones and chest wall: No suspicious bony lesions. Overlying soft tissues appear unremarkable. IMPRESSION: Patchy opacity of the right midlung zone superimposed on chronic background interstitial coarsening m ay represent an infectious/inflammatory process such as pneumonia. Background interstitial lung disea se suspected. Recommend follow-up chest radiograph 4-6 weeks after treatment to document resolution of findings and /or return to baseline exam. Reviewed by: Reagan Hurt MD on 08/04/2024 11:16 PM PDT Approved by: Reagan Hurt MD on 08/04/2024 11:16 PM PDT Station ID: [id number]
[2024-08-04 23:27] LABS: DIFFERENTIAL COMMENT MANUAL=AUTO DIFF; PLATELET ESTIMATE, MANUAL NORMAL (130-450,000) (NORMAL); PLATELET MORPHOLOGY NORMAL APPEARANCE (NORMAL); RBC MORPHOLOGY (MULTIPLE) NORMAL APPEARANCE (NORMAL); WBC MORPHOLOGY (MULTIPLE) NORMAL APPEARANCE (NORMAL)
[2024-08-04 23:52] LABS: B. PARAPERTUSSIS- RESP PCR PAN NOT DETECTED; B. PERTUSSIS- RESP PCR PANEL NOT DETECTED; C. PNEUMONIAE- RESP PCR PANEL NOT DETECTED; CORONAVIRUS 229E-RESP PCR NOT DETECTED; CORONAVIRUS HKU1-RESP PCR NOT DETECTED; CORONAVIRUS NL63-RESP PCR NOT DETECTED; CORONAVIRUS OC43-RESP PCR NOT DETECTED; HUMAN METAPNEUMOVIRUS NOT DETECTED; INFLUENZA A- RESP PCR PANEL NOT DETECTED; INFLUENZA B - RESP PCR PANEL NOT DETECTED; M. PNEUMONIAE- RESP PCR PANEL NOT DETECTED; PARAINFLUENZA VIRUS 1 NOT DETECTED; PARAINFLUENZA VIRUS 2 NOT DETECTED; PARAINFLUENZA VIRUS 4 NOT DETECTED; RHINOVIRUS/ENTEROVIRUS NOT DETECTED; RSV- RESP PCR PANEL NOT DETECTED; SARS-CoV-2 -RESP PCR PANEL NOT DETECTED
[2024-08-05] MEDS ORDERED: cefTRIAXone 2 GM VIAL ONE (00:16)
[2024-08-05] MEDS: DEXAMETHASONE 10 MG/ML VIAL IVP STA ×2 (00:21→07:13)
[2024-08-05] MEDS: AZITHROMYCIN INJ 500 MG in SODIUM CHLORIDE 0.9% 250 ML IV STA (00:27)
[2024-08-05] MEDS: cefTRIAXone 2 GM in SODIUM CHLORIDE 0.9% MINIBAG 100 ML IV STA (00:27)
[2024-08-05] MEDS ORDERED: ACETAMINOPHEN 325 MG TABLET PO ONE (01:17)
[2024-08-05] MEDS: ACETAMINOPHEN 325 MG TABLET PO STA ×2 (01:21→01:50)
[2024-08-05] MEDS ORDERED: IPRATROPIUM/ALBUTEROL 3 ML NEB INH ONE (01:39)
[2024-08-05] MEDS: IPRATROPIUM/ALBUTEROL 3 ML NEB INH STA (01:42)
[2024-08-05] MEDS: SODIUM CHLORIDE 0.9% 1,000 ML IV ONE (04:22)
[2024-08-05] MEDS: IPRATROPIUM/ALBUTEROL 3 ML NEB INH PRN (07:46)
--- NOTE | 2024-08-05 07:54 | ED Physician Documentation ---
ED Addendum Addendum Addendum: Signout from overnight physician at 7 AM shift change. 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 She is borderline hypotensive and at 84/54 and repeat fluid boluses ordered (this is her third but in about 10 hours).. No bed was available overnight but I spoke with Dr. Whiteside for admission at 7:45 AM. Discharge Plan Discharge Patient Disposition: 65 [facility] DC/Xfer Condition: Serious Clinical Impression: Pulmonary vasculitis, Interstitial lung disease, Acute hypotension Pneumonia Qualifiers: Pneumonia type: due to unspecified organism Laterality: unspecified laterality Lung location: unspecified part of lung Qualified Code(s): J18.9 - Pneumonia, unspecified organism Respiratory failure Qualifiers: Chronicity: acute Respiratory failure complication: hypoxia Qualified Code(s): J96.01 - Acute respiratory failure with hypoxia Prescriptions: No Action ipratropium-albuterol 0.5 mg-3 mg(2.5 mg base)/3 mL solution for nebulization 3 ml inhalation BID PRN (Reason: shortness of breath or wheezing) Qty: 180 1RF methotrexate sodium 2.5 mg tablet 15 mg PO QWEEK fluticasone propion-salmeterol [Advair Diskus] 250-50 mcg/dose blister with device 1 inh inhalation BID albuterol sulfate [Ventolin HFA] 90 mcg/actuation HFA aerosol inhaler 2 puff inhalation Q4H PRN (Reason: wheezing) levothyroxine 88 mcg capsule 88 mcg PO QDAY Qty: 90 3RF Rx Instructions: for thyroid Print Language: Uzbek
[2024-08-05] MEDS: SODIUM CHLORIDE 0.9% 1,000 ML IV STA (08:08)
--- NOTE | 2024-08-05 09:25 | HISTORY & PHYSICAL EXAMINATION ---
Chief Complaint Chief Complaint Chief Complaint: Shortness of breath, weakness History of Present Illness Admitted From Admitted From:: ED History Obtained From Records Reviewed: ED History obtained from: Pt, ED attending Exam Limitations: none History of Present Illness HPI Comment/Other: Patient is a 63-year-old female with a PMH of pulmonary vasculitis, not oxygen dependent at baseline,who presents with a 3-day history of shortness of breath, generalized fatigues That she states started several hours after receiving a shingles vaccine. With her history of pulmonary vasculitis that she does have home oxygen that she purchased on her own that she very rarely uses. She is very active, still mountain bikes and goes skiing and occasionally will take oxygen with her while she skis. She states that she has no fever or chills, and no significant cough, but generalized shortness of breath without any other concurrent infectious symptoms. She presented to the ED yesterday due to persistent low oxygen levels and shortness of breath where she was found to be hypoxic on room air but responding to supplemental oxygen by nasal cannula. Her workup also demonstrated leukocytosis with WBC of 23,000,And chest x-ray suggesting probable right middle lobe pneumonia. Her vital signs were remarkable for hypotension with blood pressures in the 90s over 50s and at times in the 80s systolic but she states this is not far off her normal blood pressure which tends to run low.She was diagnosed with community-acquired pneumonia and acute respiratory failure with hypoxia in the ED but due to bed availability was not admitted until early this morning and prior to this was given a single dose of ceftriaxone and a Zithromax. Meds/Allgy Home Medications Ambulatory Orders Medication Instructions Recorded Confirmed ipratropium 0.5 mg-albuterol 3 mg 3 ml inhalation BID PRN shortness 03/18/24 08/04/24 (2.5 mg base)/3 mL nebulization of breath or wheezing #180 mL soln fluticasone 250 mcg-salmeterol 50 1 inh inhalation BID 05/01/24 08/04/24 mcg/dose blistr powdr for inhalation (Advair Diskus) albuterol sulfate 90 mcg/actuation 2 puff inhalation Q4H PRN wheezing 05/06/24 08/04/24 aerosol inhaler (Ventolin HFA) levothyroxine 88 mcg capsule 88 mcg PO QDAY #90 caps 05/06/24 08/04/24 methotrexate sodium 2.5 mg tablet 15 mg PO QWEEK 05/06/24 08/04/24 folic acid 1 mg tablet 1 mg PO ONCE 08/05/24 08/05/24 Allergies Allergies Allergy/AdvReac Type Severity Reaction Status Date / Time hydromorphone (From Dilaudid) Allergy Unknown Verified 08/04/24 22:24 Penicillins Allergy Hives Verified 08/04/24 22:24 PFSH Active Problems All Active Problems (Updated 08/05/24 @ 12:11 by Feliciano Whiteside MD) Acute respiratory failure with hypoxia (Acute) Right middle lobe pneumonia (Acute) Acute hypotension (Acute) Respiratory failure (Acute) Pneumonia (Acute) Preventative health care (Acute) Hypothyroidism (Acute) Hyperlipidemia (Acute) Osteoporosis (Acute) Cervical cancer (Acute) Interstitial lung disease (Acute) Pulmonary vasculitis (Acute) Hypoxemia (Acute) Social History Social History Smoking Status: Never smoker Number of Years Smoked: 0 How many cigarettes a day do you smoke? (20 cigarettes=1 Pk): 0 Do you dip or chew tobacco?: No Do you vape?: No Patient requests smoking cessation consult: No Initiate information on smoking cessation: No Living arrangement: At home Living Condition: With spouse/s.o. Relationship: Sitter only Level: Independent Do you feel safe in your home environment?: Yes Suffered physical, verbal, emotional, or financial abuse?: No History of Abuse: No Frequency: Weekly Substance Use: cannabis (any form) Substance Use Details: Daily for sleep POLST Patient has POLST: No POLST Status: Full Code Review of Systems Status of ROS: 10 or more systems reviewed and unremarkable except as noted in history and below and See HPI Exam Constitutional normal general appearance and no apparent distress HENMT normocephalic, head/scalp atraumatic and oropharynx normal Eyes PERRL and EOMs intact bilaterally Neck/C-Spine visual inspection normal Chest inspection of chest normal Respiratory breath sounds equal bilaterally (No wheeze, rhonchi, or crackles, but lung sounds are generally diminished ), normal respiratory effort and clear to auscultation bilaterally BL coarse breath sounds Cardiovascular normal heart rate noted and regular rhythm noted tachycardic rate, regular rhythm Gastrointestinal abdomen normal to inspection, abdomen soft to palpation and nontender to palpation Extremities normal to inspection Neurology production wood craftsman II-XII intact, no movement abnormality noted and no focal motor deficit noted Psychiatry Mental Status Exam documented in the separate MSE Skin skin color normal Conclusion/Plan Problem List (1) Acute respiratory failure with hypoxia: (2) Pulmonary vasculitis: (3) Right middle lobe pneumonia: Plan #Acute respiratory failure with hypoxia #Right middle lobe pneumonia #Shortness of breath #Sepsis - POA, due to CAP of R lung middle lobe * Patient with known history of pulmonary vasculitis with only rare use of home oxygen presents with shortness of breath and initially requiring 2 to 3 L of oxygen by nasal cannula * Chest x-ray showing concerns for right middle lobe pneumonia * Patient with leukocytosis, and hypotension, PNA on CXR * Lactic acid normal * Patient will be admitted to [facility] observation status * Will f/u blood cx * Continue IV ceftriaxone and Rocephin * Repeat labs in a.m. * Wean oxygen as able * Possible discharge home in 1 to 2 days pending clinical course # Hypothyroidism * Stable * Resume home levothyroxine # Pulmonary vasculitis * See above * Patient takes methotrexate usually on Wednesdays once weekly * If patient is still here on her normal methotrexate administration day, consider methotrexate versus holding pending clinical presentation of infection Lab Results Lab results reviewed: Yes 08/04/24 22:52 08/04/24 22:52 Diagnostic Imaging Results Diagnostic Imaging Results: positive Final report reviewed EKG Results EKG Interpreted Independently: Yes
[2024-08-05] MEDS: ACETAMINOPHEN 325 MG TABLET PO PRN (11:20)
--- NOTE | 2024-08-05 12:11 | PHARMACY PROGRESS NOTE ---
Best Possible Medication History Admit Date and Time: 08/05/24 [id number] Home Medications Medication Instructions Recorded Confirmed Type ipratropium 0.5 mg-albuterol 3 mg 3 ml inhalation BID PRN shortness 03/18/24 08/04/24 Rx (2.5 mg base)/3 mL nebulization of breath or wheezing #180 mL soln fluticasone 250 mcg-salmeterol 50 1 inh inhalation BID 05/01/24 08/04/24 History mcg/dose blistr powdr for inhalation (Advair Diskus) albuterol sulfate 90 mcg/actuation 2 puff inhalation Q4H PRN wheezing 05/06/24 08/04/24 History aerosol inhaler (Ventolin HFA) levothyroxine 88 mcg capsule 88 mcg PO QDAY #90 caps 05/06/24 08/04/24 Rx methotrexate sodium 2.5 mg tablet 15 mg PO QWEEK 05/06/24 08/04/24 History folic acid 1 mg tablet 1 mg PO ONCE 08/05/24 08/05/24 History Processed by: Pharmacy Medications reviewed in ED?: No Medication History completed: Yes Patient Interview: Completed Secondary Source(s): Insurance records [facility] Statement: Per patient interview with pharmacist and review of [employer] records. As the person ultimately responsible for medication therapy, providers are able to order a medication from an existing home medication list in [facility] via the "Reconcile Routine" prior to Confirmation of that medication by medical support specialist. Such practice is discouraged except when the physician, in their clinical judgment, deems that a medical need exists for a medication without regard to previous use.
[2024-08-05] MEDS: cefTRIAXone 1 GM in SODIUM CHLORIDE 0.9% MINIBAG 100 ML IV SCH (18:46)
[2024-08-06 05:16] LABS: BASOPHILS % (AUTO) 0.2 %; EOSINOPHILS % (AUTO) 0.1 %; HCT - HEMATOCRIT 37.5 % (37.0-47.0); HGB - HEMOGLOBIN 11.9 g/dL (12.0-16.0); LYMPHOCYTES # (AUTO) 1.1 10^3/uL (1.5-3.5); LYMPHOCYTES % (AUTO) 5.7 %; MEAN CORPUSCULAR HEMOGLOBIN 31.3 pg (27.0-31.0); MEAN CORPUSCULAR HGB CONC 31.7 g/dL (32.0-36.0); MEAN CORPUSCULAR VOLUME 98.7 fL (81.0-99.0); MEAN PLATELET VOLUME 9.3 fL (7.9-10.8); MONOCYTES # (AUTO) 1.1 10^3/uL (0.0-1.0); MONOCYTES % (AUTO) 5.7 %; NEUTROPHILS # (AUTO) 16.9 10^3/uL (1.5-6.6); NEUTROPHILS % (AUTO) 87.3 %; PLT - PLATELET COUNT 237 10^3/uL (130-450); RED CELL DISTRIBUTION WIDTH 13.4 % (12.0-15.0); WHITE BLOOD COUNT 19.3 x10^3/uL (4.8-10.8)
[2024-08-06 05:22] LABS: CALCIUM 8.6 mg/dL (8.5-10.3); CREATININE 0.6 mg/dL (0.6-1.3); POTASSIUM 3.7 mmol/L (3.5-4.5)
[2024-08-06 07:51] VITALS: TEMP 97.9
[2024-08-06] MEDS: LEVOTHYROXINE 88 MCG TABLET PO SCH (08:01)
[2024-08-06] MEDS ORDERED: cefTRIAXone 1 GM in SODIUM CHLORIDE 0.9% MINIBAG 100 ML IV SCH (09:00)
[2024-08-06] MEDS: AZITHROMYCIN INJ 500 MG in SODIUM CHLORIDE 0.9% 250 ML IV SCH (09:24)
[2024-08-06 12:31] VITALS: BP 119/76; O2SAT 94
--- NOTE | 2024-08-06 12:48 | Discharge Summary ---
"Discharge Summary Admit Date: 08/05/24 Discharge Date: 08/06/24 Discharging Provider: Dr. Arjun Lemus Primary Care Provider: Joslyn Rico Code Status: Do Not Attempt Resuscitation Discharge Facility Name: Home with Home Health DIAGNOSES Admission Diagnoses: Acute respiratory failure with hypoxia Right middle lobe pneumonia Shortness of breath Sepsis Hypothyroidism Pulmonary vasculitis Discharge Diagnoses with Status of Each Condition: Acute respiratory failure with hypoxiaresolved. Patient is now on room air. She does require 1 to 2 L of oxygen with exertion. She has home oxygen, up to 5 L already at home. Right middle lobe pneumonia Sepsis Patient remains with leukocytosis of 19. She has a follow-up appointment with her primary care provider on 08/15. Advised to follow-up closely, and have her levels rechecked. She needs to complete a 3-day course of azithromycin, have sent 1 more day to the pharmacy. As well as a 5-day course of levofloxacin; she requires 3 more days, which I have sent to the pharmacy as well. Blood cultures are no growth to date at this time. Hypothyroidismcontinue home medications. Pulmonary vasculitiscontinue follow-up closely with her logistics supply officer. HPI History of Present Illness: Per Dr. Whiteside: Patient is a 63-year-old female with a PMH of pulmonary vasculitis, not oxygen dependent at baseline,who presents with a 3-day history of shortness of breath, generalized fatigues That she states started several hours after receiving a shingles vaccine. With her history of pulmonary vasculitis that she does have home oxygen that she purchased on her own that she very rarely uses. She is very active, still mountain bikes and goes skiing and occasionally will take oxygen with her while she skis. She states that she has no fever or chills, and no significant cough, but generalized shortness of breath without any other concurrent infectious symptoms. She presented to the ED yesterday due to persistent low oxygen levels and shortness of breath where she was found to be hypoxic on room air but responding to supplemental oxygen by nasal cannula. Her workup also demonstrated leukocytosis with WBC of 23,000,And chest x-ray suggesting probable right middle lobe pneumonia. Her vital signs were remarkable for hypotension with blood pressures in the 90s over 50s and at times in the 80s systolic but she states this is not far off her normal blood pressure which tends to run low.She was diagnosed with community-acquired pneumonia and acute respiratory failure with hypoxia in the ED but due to bed availability was not admitted until early this morning and prior to this was given a single dose of ceftriaxone and a Zithromax. CONSULTS | PROCEDURES Consultations: Respiratory therapy Procedures: Chest x-ray HOSPITAL COURSE Hospital Course: Patient is a 63-year-old female with a history of microscopic polyangiitis who presented with worsening dyspnea, generalized fatigue, as well as chills. Chest x-ray showed a right middle lobe pneumonia. Patient was hypoxic, and required 2 to 3 L of oxygen. She also had a leukocytosis as high as 23. She was started on Rocephin and azithromycin. Her leukocytosis has been slowly improving, and is now 19. She is now on room air. Oxygen desaturation study revealed that she required 1 to 2 L of oxygen to recover. She already has a concentrator at home, with oxygen as high as 5 L. She was advised to follow-up closely with her primary care provider; she has a follow-up appointment already set up for 08/15. She is advised to get her white blood cell count checked at that time. She is also advised to finish up her antibiotic course; she will need a 3-day course of azithromycin, as well as a 5-day course of her Levaquin. She is also advised follow-up with her logistics supply officer in the outpatient setting for close follow-up. ALLERGIES Allergies Allergy/AdvReac Type Severity Reaction Status Date / Time hydromorphone (From Dilaudid) Allergy Unknown Verified 08/04/24 22:24 Penicillins Allergy Hives Verified 08/04/24 22:24 MEDICATIONS Ambulatory Orders Medication Instructions Recorded Confirmed ipratropium 0.5 mg-albuterol 3 mg 3 ml inhalation BID PRN shortness 03/18/24 08/04/24 (2.5 mg base)/3 mL nebulization of breath or wheezing #180 mL soln fluticasone 250 mcg-salmeterol 50 1 inh inhalation BID 05/01/24 08/04/24 mcg/dose blistr powdr for inhalation (Advair Diskus) albuterol sulfate 90 mcg/actuation 2 puff inhalation Q4H PRN wheezing 05/06/24 08/04/24 aerosol inhaler (Ventolin HFA) levothyroxine 88 mcg capsule 88 mcg PO QDAY #90 caps 05/06/24 08/06/24 methotrexate sodium 2.5 mg tablet 15 mg PO QWEEK 05/06/24 08/04/24 folic acid 1 mg tablet 1 mg PO ONCE 08/05/24 08/05/24 azithromycin 500 mg tablet 500 mg PO DAILY 1 day #1 tab 08/06/24 levofloxacin 750 mg tablet 750 mg PO DAILY 3 days #3 tabs 08/06/24 PHYSICAL EXAM AT DISCHARGE General Appearance: positive No acute distress and Alert; negative Anxious Eyes Bilateral: positive Normal inspection, PERRL and EOMI ENT: positive ENT inspection nml, Pharynx nml and No signs of dehydration Neck: positive Nml inspection, Thyroid nml and No JVD Respiratory: positive Chest non-tender and No respiratory distress; negative Wheezes, Rales or Rhonchi Cardiovascular: positive Regular rate & rhythm, No murmur and No gallop Peripheral Pulses: positive 2+ Abdomen: positive Non-tender and No distention; negative Guarding, Rebound, Hepatomegaly, Splenomegaly or Mass Back: positive Nml inspection; negative CVA tenderness (R) or CVA tenderness (L) Skin: positive Color nml, No rash, Warm and Dry Extremities: positive Non-tender, Full ROM, Nml appearance and No pedal edema Neurologic/Psychiatric: positive Oriented x3, Motor nml, Sensation nml and Mood/affect nml LABS 08/06/24 04:58 08/06/24 04:58 DIAGNOSTIC IMAGING Diagnostic Imaging Results: Final report reviewed SEPSIS Current Stage of Sepsis: Resolved FOLLOW UP Follow Up: Follow up with primary care provider. Follow up with logistics supply officer. TIME SPENT Time Spent in Discharge (Minutes): 35 Discharge Plan Discharge Patient Disposition: Home, Self Care Condition: Serious Prescriptions: New azithromycin 500 mg tablet 500 mg PO DAILY 1 Days Qty: 1 0RF levofloxacin 750 mg tablet 750 mg PO DAILY 3 Days Qty: 3 0RF Continued ipratropium-albuterol 0.5 mg-3 mg(2.5 mg base)/3 mL solution for nebulization 3 ml inhalation BID PRN (Reason: shortness of breath or wheezing) Qty: 180 1RF methotrexate sodium 2.5 mg tablet 15 mg PO QWEEK folic acid 1 mg tablet 1 mg PO ONCE Patient Comments: TAKE ONE TABLET BY MOUTH ONE TIME DAILY fluticasone propion-salmeterol [Advair Diskus] 250-50 mcg/dose blister with device 1 inh inhalation BID albuterol sulfate [Ventolin HFA] 90 mcg/actuation HFA aerosol inhaler 2 puff inhalation Q4H PRN (Reason: wheezing) levothyroxine 88 mcg capsule 88 mcg PO QDAY Qty: 90 3RF Rx Instructions: for thyroid Diet: Regular Health Concerns: You came in because after you got your shingles vaccine, you started feeling not so good. You had some shortness of breath, fatigue, chills. Your chest x-ray demonstrated that you had a pneumonia in your right lung. You had a high white count, a marker of infection, as well as a low blood pressure, and required oxygen. I understand that you have a history of microscopic polyangiitis, and occasionally use oxygen as needed. Over the course of the few days you were here, we weaned you off your oxygen. You will not need oxygen on discharge. Please complete your antibiotic course: You have 3 more days of oral levofloxacin, as well as 1 more day of azithromycin. Both of these are once a day medications. Please follow-up with your primary care provider, I understand you already have an appointment set up for 08/15. I would like for them to recheck your blood levels, and make sure that your white blood cell count is coming down. If you feel any shortness of breath, fevers, chills at home, please feel free to return to the emergency room. We are glad you are feeling better, thank you for allowing us to take care of you. Print Language: [place] Leonean Patient Instructions: ED Pneumonia Adult Stand Alone Forms: PCP List"
== END 2024-08-06 16:14 | disposition home or self-care (01) ==
LOC: ED 22:04 → MS2 22:04
PROVIDERS: ADMIT Family Medicine Sports Medicine; ATTEND Family Medicine Sports Medicine
DX: R42 Dizziness and giddiness; Z20.818 Contact with and (suspected) exposure to other bacterial communicable diseases; Z79.899 Other long term (current) drug therapy; A41.9 Sepsis, unspecified organism; E03.9 Hypothyroidism, unspecified; I95.9 Hypotension, unspecified; J18.9 Pneumonia, unspecified organism; J96.01 Acute respiratory failure with hypoxia; Z20.822 Contact with and (suspected) exposure to COVID-19; R94.31 Abnormal electrocardiogram [ECG] [EKG]; Z79.631 Long term (current) use of antimetabolite agent; Z79.890 Hormone replacement therapy; Z20.828 Contact with and (suspected) exposure to other viral communicable diseases; M31.7 Microscopic polyangiitis; Z79.51 Long term (current) use of inhaled steroids